=== PATIENT | female | born 1940 | race Hispanic/Latino ===

== ENCOUNTER 2018-07-02 12:59 | Inpatient (IN) | payer BC, MEDICARE ==
--- NOTE | 2018-07-02 14:21 | C.PDOC ---
History Of Present Illness 78 y/o female presents to the ED complaining of possible foreign body to pharynx. States that she was chewing dried apricot and now feels like its stuck in her throat. Patient complains it feels difficult to swallow. No other complai nts. She appears comfortable on arrival, speaking in complete sentences. Time Seen by Provider: 07/02/18 13:32 Chief Complaint (Nursing): ENT Problem History Per: Patient History/Exam Limitations: None Onset/Duration Of Symptoms: Hrs Current Symptoms Are (Timing): Still Present Past Medical History Reviewed: Historical Data, Nursing Documentation, Vital Signs Vital Signs: Last Vital Signs Temp 97.4 F L 07/02/18 13:10 Pulse 65 07/02/18 13:10 Resp 22 07/02/18 13:10 BP 142/80 07/02/18 13:10 Pulse Ox 96 07/02/18 13:10 - Medical History PMH: Arthritis, Rheumatoid Arthritis Surgical History: Coronary Stent (2 weeks ago) Family History: States: Unknown Family Hx - Social History Hx Alcohol Use: No Hx Substance Use: No - Immunization History Hx Tetanus Toxoid Vaccination: No Hx Influenza Vaccination: No Hx Pneumococcal Vaccination: No Review Of Systems Except As Marked, All Systems Reviewed And Found Negative. Constitutional: Negative for: Fever, Chills ENT: Positive for: Throat Pain, Other (Difficulty swallowing, Possible FB in throat). Negative for: Throat Swelling Respiratory: Negative for: Cough, Shortness of Breath Gastrointestinal: Negative for: Nausea, Vomiting, Abdominal Pain Skin: Negative for: Rash Neurological: Negative for: Weakness, Dizziness Physical Exam - Physical Exam Appears: Non-toxic, No Acute Distress, Other (Speaking in full sentences) Skin: Normal Color, Warm, Dry Head: Atraumatic, Normacephalic Eye(s): bilateral: Normal Inspection, PERRL, EOMI Oral Mucosa: Moist Throat: No Drooling, Other (Mild stridor, no visible foreign body) Neck: Normal ROM, Supple Chest: Symmetrical Cardiovascular: Rhythm Regular, No Murmur Respiratory: Normal Breath Sounds, No Accessory Muscle Use Gastrointestinal/Abdominal: Soft, No Tenderness, No Distention Extremity: Bilateral: Atraumatic, Normal ROM (x 4) Neurological/Psych: Oriented x3, Normal Speech ED Course And Treatment - Laboratory Results Result Diagrams: 07/02/18 14:18 07/02/18 14:18 ECG: Interpreted By Me, Viewed By Me ECG Rhythm: Sinus Rhythm Interpretation Of ECG: Nonspecific ST/T wave changes. No old EKG for comparison Rate From EC (bpm) O2 Sat by Pulse Oximetry: 96 (RA) Pulse Ox Interpretation: Normal - CT Scan/US CT Neck/Soft Tissue Other Rad Studies (CT/US): Read By Radiologist, Radiology Report Reviewed CT/US Interpretation: Accession No. : [id number]. Patient Name / ID : JAY RILEY / [id number]. Exam Date : 07/02/2018 14:47:59 ( Approved ). Study Comment : Sex / Age : F / 78Y. Creator : Wen Shine. Dictator : Ervin Shore MD. Care Team Assistant : Press Cutter : Ervin Shore MD. Approver2 : Report Date : 07/02/2018 15:06:35. My Comment : . Date of service: 07/02/2018. PROCEDURE: CT NECK WITHOUT CONTRAST. HISTORY: dysphagia r/o esophageal foreign body. COMPARISON: None available. TECHNIQUE: CT of the neck without intravenous contrast. Coronal and sagittal reformats generated. Radiation dose: Total exam DLP = 295.34 mGy-cm. This CT exam was performed using one or more of the following dose reduction techniques: Automated exposure control, adjustment of the mA and/or kV according to patient size, and/or use of iterative reconstruction technique. FINDINGS: NASOPHARYNX: Unremarkable. SUPRAHYOID NECK: Unremarkable oropharynx, oral cavity, parapharyngeal space and retropharyngeal space. INFRAHYOID NECK: There is fluid identified layering in the hypopharynx at the valleculae symmetrically due to 1.8 x 2.5 x 4.5 cm hyperdense retained presumed foreign body at the origin of the esophagus extending into the upper 3rd of the esophagus just above the level of the thoracic inlet. No pneumomediastinum or fluid collection is appreciated surrounding the esophagus with the upper mediastinum in the chest remarkable only for atherosclerotic thoracic aortic arch. Note is made of a permanent cardiac pacemaker generator the left pectoralis region with 2 leads extending to the left subclavian vein in identified exerting exit entering into the superior vena cava with the distal segment is not captured in this exam. Unremarkable larynx, and supraglottic space. Vocal cords intact. MASS: None. GLANDS: Parotid and submandibular glands unremarkable. Normal size thyroid gland, without nodule. LYMPH NODES: Normal. No lymphadenopathy. CERVICAL SPINE: No fracture or focal lesion. OTHER FINDINGS: Two small nodules identified at the right pulmonary apex with the largest seen faintly in image 68 series 2 measuring 4.96 mm. A smaller likely solid nodule measures 3.2 mm in image 63. IMPRESSION: 1. 4.5 cm retained foreign body is seen at the proximal esophagus immediately inferior to the pharyngo esophageal junction causing pooling of fluid at the hypopharynx as discussed above. No pneumomediastinum or periesophageal fluid collection appreciable. 2. Otherwise unremarkable neck CT without contrast. 3. Incidental biapical fibrosis with at least 2 nodule suspected at the right pulmonary apex under 5 mm greatest dimension for which follow-up CT can be performed in 6 months to demonstrate stability of these findings. Findings discussed with Dr. De Oliveira with written down and read back verification 07/02/2018 3:[address] Chest Other Rad Studies (CT/US): Read By Radiologist, Radiology Report Reviewed CT/US Interpretation: Accession No. : [id number]. Patient Name / ID : JAY RILEY / [id number]. Exam Date : 07/02/2018 14:51:25 ( Approved ). Study Comment : Sex / Age : F / 78Y. Creator : Wen Shine. Dictator : Ervin Shore MD. Care Team Assistant : Press Cutter : Ervin Shore MD. Approver2 : Report Date : 07/02/2018 15:06:29. My Comment : . Date of service: 07/02/2018. PROCEDURE: CT Chest without contrast. HISTORY: DYSPHAGIA R/O ESOPHAGEAL FOREIGN BODY. COMPARISON: None available. TECHNIQUE: Contiguous axial images were obtained through the chest without intravenous contrast enhancement. Sagittal and coronal reconstructions were performed. . Radiation dose: Total exam DLP = 143.5 mGy-cm. This CT exam was performed using one or more of the following dose reduction techniques: Automated exposure control, adjustment of the mA and/or kV according to patient size, and/or use of iterative reconstruction technique. FINDINGS: LUNGS: Dense atelectasis appreciate the right lower lobe base. Limited linear atelectasis or fibrosis seen at the bilateral bases. Central airways are clear. A few right pulmonary nodules are identified: A non solid 5 mm nodule is been previously identified and neck CT at the right apex laterally and corresponds to a nodule seen in image 21 series 4 currently. A 3.2 mm nodule is seen more cephalad to it also described in separate neck CT in image 18 currently. A 5 mm nodule seen in the right lower lobe in image 51 with a 5.9 mm nodule identified in the right middle lobe in the periphery in image 67. None of these nodules are calcified. At the left lower lobe costophrenic sulcus there is a flat shaped 5 mm nodule noncalcified in image 88. MEDIASTINUM: Non aneurysmal thoracic aorta identified.. Borderline cardiomegaly. Are leads from permanent cardiac pacemaker seen with generator the left pectoralis region and leads entering into the chest via left subclavian vein. Main pulmonary artery measures 3.2 cm was not definitive of pulmonary artery hypertension however clinical correlation is recommended. No significant lymphadenopathy appreciable. At the middle 3rd of the esophagus, there is an additional radiodensity seen within the lumen measuring 1.6 x 1.4 x 3.5 cm representing a 2nd retained foreign body reportedly, desiccated aspect apricot pieces. Again, no pneumomediastinum is identified or periesophageal fluid collection to potentially herald a esophageal perforation. Calcific atherosclerotic changes are seen related to the thoracic aorta. PLEURA: No pleural fluid. No pneumothorax. BONES: Multilevel insufficiency fracture identified at the mid thoracic spine of [id number] severity but of indeterminate age. T6 vertebral body is anteriorly wedged to moderate severity with T7 and T8 mildly anterior wedged. UPPER ABDOMEN: Bilateral renal cysts are identified incidentally. OTHER FINDINGS: None. IMPRESSION: 1. 3.5 cm retained radiodense foreign body appreciated in the mid esophagus apparently reflecting pieces of apricot fruit. This is the 2nd of 2 identified within the esophagus. Please see separate neck CT (07/02/2018 as well) without contrast which demonstrates larger obstructing retained foreign body at the origin of the esophagus. 2. Scattered pulmonary nodules are identified, all under 1 cm size which require six-month follow-up CT to demonstrate stability if not already proven benign. 3. Right lower lobe atelectasis favored over infiltrate. 4. 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 Age of these fractures is indeterminate. 5. Other lesser findings as discussed above. Findings discussed with Dr. De Oliveira with written down and read back verification 07/02/2018, 3:50 p.m.. Medical Decision Making Medical Decision Making: Impression: R/o foreign body Plan: --Labs --CXR --CT Chest --CT Neck/Soft tissue ENT on-call, Dr. Centeno, was paged. 14:15 Dr. Centeno is at bedside, evaluating patient. 15:36 CT shows esophageal foreign body. Paged Dr. Schultz, GI on-call, for consult. 16:05 Attempted 2nd page to Dr. Schultz. 16:13 Received call back from Dr. Schultz, agrees with plan to give Glucagon and Zofran. Recommends patient be admitted to hospitalist service. 16:[address] Yobany Garcia, patient accepted for admission. dr griggs later calls. states he will be taking pt to endoscopy. Disposition Counseled Patient/Family Regarding: Studies Performed, Diagnosis - Disposition Disposition: HOSPITALIZED Disposition Time: 16:20 Condition: STABLE - Clinical Impression Clinical Impression: Esophageal obstruction due to food impaction - Uzmaibe Statement The provider has reviewed the documentation as recorded by the Nisha Almanza Provider Attestation: All medical record entries made by the Nisha were at my direction and personally dictated by me. I have reviewed the chart and agree that the record accurately reflects my personal performance of the history, physical exam, me dical decision making, and the department course for this patient. I have also personally directed, reviewed, and agree with the discharge instructions and disposition. Decision To Admit - Pt Status Changed To: Hospital Disposition Of: Inpatient - Admit Certification Admit to Inpatient:: After my assessment, the patient will require hospitalization for at least two midnights. This is because of the severity of symptoms shown, intensity of services needed, and/or the medical risk in this pa tient being treated as an outpatient. - InPatient: Physician Admission Certification: I certify that this patient requires 2 or more midnights of care for the following reason:: needs gi - . Bed Request Type: Regular Admitting Physician: Yobany Garcia Patient Diagnosis: Esophageal obstruction due to food impaction
[2018-07-02 14:23] LABS: BASO % 0.5 % (0.0-2.0); EOS # 0.2 K/uL (0.0-0.7); EOS % 2.4 % (0.0-4.0); HEMOGLOBIN 10.3 g/dL (11.0-16.0); LYMPH # 1.2 K/uL (1.0-4.3); LYMPH % 18.2 % (20.0-40.0); MEAN CELL VOLUME 96.8 fL (81.0-99.0); MEAN CORPUSCULAR HEMOGLOBIN 31.6 pg (27.0-31.0); MEAN CORPUSCULAR HGB CONC 32.6 g/dL (33.0-37.0); MEAN PLATELET VOLUME 7.3 fL (7.2-11.7); MONO # 0.5 K/uL (0.0-0.8); MONO % 7.5 % (0.0-10.0); NEUT # 4.6 K/uL (1.8-7.0); NEUT % 71.4 % (50.0-75.0); NRBC % 0.1 % (0.0-2.0); RBC 3.28 Mil/uL (3.80-5.20); RED CELL DISTRIBUTION WIDTH 15.3 % (11.5-14.5); WHITE BLOOD COUNT 6.4 K/uL (4.8-10.8)
[2018-07-02 14:32] LABS: INR 1.1; PROTHROMBIN TIME 11.7 SECONDS (9.7-12.2)
[2018-07-02 14:35] LABS: ALB/GLOB RATIO 1.4 (1.0-2.1); ALBUMIN 4.1 g/dL (3.5-5.0); ALT/SGPT 24 U/L (9-52); AST/SGOT 27 U/L (14-36); BLOOD UREA NITROGEN 26 mg/dL (7-17); CALCIUM 9.6 mg/dl (8.6-10.4); GFR NON-AFRICAN AMERICAN > 60
--- NOTE | 2018-07-02 15:43 | CT ---
Date of service: 07/02/2018 PROCEDURE: CT NECK WITHOUT CONTRAST HISTORY: dysphagia r/o esophageal foreign body COMPARISON: None available. TECHNIQUE: CT of the neck without intravenous contrast. Coronal and sagittal reformats generated. Radiation dose: Total exam DLP = 295.34 mGy-cm. This CT exam was performed using one or more of the following dose reduction techniques: Automated exposure control, adjustment of the mA and/or kV according to patient size, and/or use of iterative reconstruction technique. FINDINGS: NASOPHARYNX: Unremarkable. SUPRAHYOID NECK: Unremarkable oropharynx, oral cavity, parapharyngeal space and retropharyngeal space. INFRAHYOID NECK: There is fluid identified layering in the hypopharynx at the valleculae symmetrically due to 1.8 x 2.5 x 4.5 cm hyperdense retained presumed foreign body at the origin of the esophagus extending into the upper 3rd of the esophagus just above the level of the thoracic inlet. No pneumomediastinum or fluid collection is appreciated surrounding the esophagus with the upper mediastinum in the chest remarkable only for atherosclerotic thoracic aortic arch. Note is made of a permanent cardiac pacemaker generator the left pectoralis region with 2 leads extending to the left subclavian vein in identified exerting exit entering into the superior vena cava with the distal segment is not captured in this exam. Unremarkable larynx, and supraglottic space. Vocal cords intact. MASS: None. GLANDS: Parotid and submandibular glands unremarkable. Normal size thyroid gland, without nodule. LYMPH NODES: Normal. No lymphadenopathy. CERVICAL SPINE: No fracture or focal lesion. OTHER FINDINGS: Two small nodules identified at the right pulmonary apex with the largest seen faintly in image 68 series 2 measuring 4.96 mm. A smaller likely solid nodule measures 3.2 mm in image 63. IMPRESSION: 1. 4.5 cm retained foreign body is seen at the proximal esophagus immediately inferior to the pharyngo esophageal junction causing pooling of fluid at the hypopharynx as discussed above. No pneumomediastinum or periesophageal fluid collection appreciable. 2. Otherwise unremarkable neck CT without contrast. 3. Incidental biapical fibrosis with at least 2 nodule suspected at the right pulmonary apex under 5 mm greatest dimension for which follow-up CT can be performed in 6 months to demonstrate stability of these findings. Findings discussed with Dr. De Oliveira with written down and read back verification 07/02/2018 3:35 p.m..
--- NOTE | 2018-07-02 16:00 | CT ---
Date of service: 07/02/2018 PROCEDURE: CT Chest without contrast HISTORY: DYSPHAGIA R/O ESOPHAGEAL FOREIGN BODY COMPARISON: None available. TECHNIQUE: Contiguous axial images were obtained through the chest without intravenous contrast enhancement. Sagittal and coronal reconstructions were performed. Radiation dose: Total exam DLP = 143.5 mGy-cm. This CT exam was performed using one or more of the following dose reduction techniques: Automated exposure control, adjustment of the mA and/or kV according to patient size, and/or use of iterative reconstruction technique. FINDINGS: LUNGS: Dense atelectasis appreciate the right lower lobe base. Limited linear atelectasis or fibrosis seen at the bilateral bases. Central airways are clear. A few right pulmonary nodules are identified: A non solid 5 mm nodule is been previously identified and neck CT at the right apex laterally and corresponds to a nodule seen in image 21 series 4 currently. A 3.2 mm nodule is seen more cephalad to it also described in separate neck CT in image 18 currently. A 5 mm nodule seen in the right lower lobe in image 51 with a 5.9 mm nodule identified in the right middle lobe in the periphery in image 67. None of these nodules are calcified. At the left lower lobe costophrenic sulcus there is a flat shaped 5 mm nodule noncalcified in image 88. MEDIASTINUM: Non aneurysmal thoracic aorta identified.. Borderline cardiomegaly. Are leads from permanent cardiac pacemaker seen with generator the left pectoralis region and leads entering into the chest via left subclavian vein. Main pulmonary artery measures 3.2 cm was not definitive of pulmonary artery hypertension however clinical correlation is recommended. No significant lymphadenopathy appreciable. At the middle 3rd of the esophagus, there is an additional radiodensity seen within the lumen measuring 1.6 x 1.4 x 3.5 cm representing a 2nd retained foreign body reportedly, desiccated aspect apricot pieces. Again, no pneumomediastinum is identified or periesophageal fluid collection to potentially herald a esophageal perforation. Calcific atherosclerotic changes are seen related to the thoracic aorta. PLEURA: No pleural fluid. No pneumothorax. BONES: Multilevel insufficiency fracture identified at the mid thoracic spine of [id number] severity but of indeterminate age. T6 vertebral body is anteriorly wedged to moderate severity with T7 and T8 mildly anterior wedged. UPPER ABDOMEN: Bilateral renal cysts are identified incidentally. OTHER FINDINGS: None. IMPRESSION: 1. 3.5 cm retained radiodense foreign body appreciated in the mid esophagus apparently reflecting pieces of apricot fruit. This is the 2nd of 2 identified within the esophagus. Please see separate neck CT (07/02/2018 as well) without contrast which demonstrates larger obstructing retained foreign body at the origin of the esophagus. 2. Scattered pulmonary nodules are identified, all under 1 cm size which require six-month follow-up CT to demonstrate stability if not already proven benign. 3. Right lower lobe atelectasis favored over infiltrate. 4. Kyphotic thoracic spinal deformity due to multilevel [id number] compression fractures likely insufficiency related. Age of these fractures is indeterminate. 5. Other lesser findings as discussed above. Findings discussed with Dr. De Oliveira with written down and read back verification 07/02/2018, 3:50 p.m..
[2018-07-02] MEDS ORDERED: Glucagon Recombinant 1 mg Inj IV STA (16:11)
--- NOTE | 2018-07-02 16:24 | RAD ---
HISTORY: SOB COMPARISON: Noncontrast chest CT performed 07/02/18 TECHNIQUE: Chest, one view. FINDINGS: LUNGS: No focal consolidation. Please note that chest x-ray has limited sensitivity for the detection of pulmonary masses. PLEURA: No significant pleural effusion identified. No definite pneumothorax . CARDIOVASCULAR: Cardiomegaly. Ectatic aorta. Dense atherosclerotic calcifications. Dual lead left-sided pacemaker. OSSEOUS STRUCTURES: Osseous demineralization. Degenerative changes and deformity of the right humeral head. High-riding left humeral head may be seen in setting of chronic rotator cuff injury. VISUALIZED UPPER ABDOMEN: Unremarkable. OTHER FINDINGS: None. IMPRESSION: Cardiomegaly. Ectatic aorta. Dense atherosclerotic calcifications. Dual lead left-sided pacemaker. No focal consolidation.
[2018-07-02] MEDS ORDERED: Glucagon Recombinant 1 mg Inj ONE (16:28)
--- NOTE | 2018-07-02 16:44 | CP.PCM.HP ---
History of Present Illness - History of Present Illness History of Present Illness: PGY-1 Vicky Myers D.O. H&P for Dr. Yobany Garcia's service: Patient is an 78 year old female with history of HTN, HLD, CAD, RA, GERD, hypothyroidism, and glaucoma who presented to the ED with the feeling like something is caught in her throat. She was eating dried apricots 4 hours ago during her lunch when her upper and lower dentures became dislodged and she accidentally swallowed the apricots whole. She reports that she tried to drink water since the incident but is unable to swallow, even her secretions. She also reports a cough due to the discomfort in her throat and is producing a lot of clear saliva. She is able to speak and breathe without respiratory distress but does complain of pain with deep breaths. Patient denies dizziness, chest pain, palpitations, SOB, stomach pain, dysuria. PMH and medications were obtained from [facility] since patient and were unable to provide all spec [facility] information. PMH: CAD- stent 2 wks ago, HTN, HLD, rheumatoid arthritis, GERD, glaucoma, hypothyroidism PSH: b/l total hip replacements, L hand surgery for arthritis Meds: lisinopril 2.5 mg PO qd, atorvastatin 10 mg PO qd, methotrexate 2.5 mg PO qd, clopidogrel 75 mg PO qd, diclofenac sodium 1% gel q12h prn, esomeprazole 20 mg PO qd, levothyroxine 25 mg PO qd, folic acid 1 mg PO qd, metoprolol tartrate 25 mg PO bid, ezetimibe 10 mg PO qd, rhopressa 0.02% 1 drop qd, combigan eye drops 1 drop bid, travatan z 0.004% 1 eye drop qd All: levofloxacin- anaphylaxis FH: father, 3 brothers- heart disease SH: lives with , uses walker/cane to ambulate, quit smoking 50 years ago, denies alcohol or illicit drug use PMD: Stephanie Cardio: [place] GI: [place] Present on Admission - Present on Admission Any Indicators Present on Admission: No History of DVT/PE: No History of Uncontrolled Diabetes: No Urinary Catheter: No Decubitus Ulcer Present: No History Surgical Site Infection Following: None Review of Systems - Constitutional Constitutional: absent: Chills, Fever - EENT Eyes: absent: Change in Vision Ears: absent: Decreased Hearing Nose/Mouth/Throat: As Per HPI, Nasal Congestion, Dysphagia, Odynophagia, Neck Mass (L-side, present many years) - Cardiovascular Cardiovascular: Dyspnea. absent: Chest Pain, Palpitations, Pedal Edema - Respiratory Respiratory: As Per HPI, Cough, Dyspnea, Pain with Coughing. absent: Hemoptysis - Gastrointestinal Gastrointestinal: Nausea. absent: Abdominal Pain, Bloating, Constipation, Diarrhea, Vomiting - Genitourinary Genitourinary: absent: Dysuria, Hematuria - Menstruation Menstruation: Post Menopausal - Musculoskeletal Musculoskeletal: As Per HPI (chronic arthritis) - Integumentary Integumentary: absent: Lesions - Neurological Neurological: Weakness. absent: Focal Weakness, Headaches, Sensory Deficit, Syncope, Tremor - Endocrine Endocrine: absent: Palpitations - Hematologic/Lymphatic Hematologic: absent: Easy Bleeding, Easy Bruising, Lymphadenopathy Past Patient History - Infectious Disease Hx of Infectious Diseases: None - Tetanus Immunizations Tetanus Immunization: Unknown - Past Medical History & Family History Past Medical History?: Yes Past Family History: Reviewed and not pertinent - Past Social History Smoking Status: Former Smoker Chewing Tobacco Use: No Cigar Use: No Alcohol: None Drugs: Denies Home Situation {Lives}: With Family () - MUSCULOSKELETAL/RHEUMATOLOGICAL Hx Arthritis: Yes Hx Rheumatoid Arthritis: Yes - PSYCHIATRIC Hx Substance Use: No - SURGICAL HISTORY Hx Coronary Stent: Yes (2 weeks ago) Meds Allergies/Adverse Reactions: Allergies Allergy/AdvReac Type Severity Reaction Status Date / Time levofloxacin [From Levaquin] Allergy Verified 07/02/18 13:15 Physical Exam - Constitutional Appears: No Acute Distress - Head Exam Head Exam: ATRAUMATIC, NORMAL INSPECTION - Eye Exam Eye Exam: EOMI, PERRL Additional comments: b/l lacrimation - ENT Exam ENT Exam: Mucous Membranes Moist Additional comments: copious oral secretions - Neck Exam Additional comments: anterior cervical 1x1cm mode- nontender, firm, mobile - Respiratory Exam Respiratory Exam: Rales (L lower lung field), NORMAL BREATHING PATTERN. absent: Accessory Muscle Use, Respiratory Distress - Cardiovascular Exam Cardiovascular Exam: REGULAR RHYTHM, +S1, +S2 - GI/Abdominal Exam GI & Abdominal Exam: Soft. absent: Distended, Tenderness - Extremities Exam Extremities exam: Positive for: normal inspection, pedal pulses present. Neg ative for: pedal edema, tenderness - Back Exam Back exam: NORMAL INSPECTION - Neurological Exam Neurological exam: Alert, CN II-XII Intact, Oriented x3 - Psychiatric Exam Psychiatric exam: Normal Affect, Normal Mood - Skin Skin Exam: Dry, Normal Color, Warm Results - Vital Signs Recent Vital Signs: Last Vital Signs Temp 98.5 F 07/02/18 16:33 Pulse 70 07/02/18 16:33 Resp 18 07/02/18 16:33 BP 159/69 H 07/02/18 16:33 Pulse Ox 95 07/02/18 16:33 - Labs Result Diagrams: 07/02/18 14:18 07/02/18 14:18 Labs: Laboratory Results - last 24 hr 07/02/18 07/02/18 07/02/18 14:18 14:18 14:18 WBC 6.4 RBC 3.28 L Hgb 10.3 L Hct 31.7 L MCV 96.8 MCH 31.6 H MCHC 32.6 L RDW 15.3 H Plt Count 193 MPV 7.3 Neut % (Auto) 71.4 Lymph % (Auto) 18.2 L [place] % (Auto) 7.5 Eos % (Auto) 2.4 Baso % (Auto) 0.5 Neut # (Auto) 4.6 Lymph # (Auto) 1.2 [place] # (Auto) 0.5 Eos # (Auto) 0.2 Baso # (Auto) 0.0 PT 11.7 INR 1.1 APTT 34 Sodium 136 Potassium 4.3 Chloride 103 Carbon Dioxide 24 Anion Gap 13 BUN 26 H Creatinine 0.8 Est GFR ( Amer) > 60 Est GFR (Non-Af Amer) > 60 Random Glucose 85 Calcium 9.6 Total Bilirubin 0.6 AST 27 ALT 24 Alkaline Phosphatase 75 Total Protein 7.1 Albumin 4.1 Globulin 3.0 Albumin/Globulin Ratio 1.4 Blood Type Antibody Screen 07/02/18 14:18 WBC RBC Hgb Hct MCV MCH MCHC RDW Plt Count MPV Neut % (Auto) Lymph % (Auto) [place] % (Auto) Eos % (Auto) Baso % (Auto) Neut # (Auto) Lymph # (Auto) [place] # (Auto) Eos # (Auto) Baso # (Auto) PT INR APTT Sodium Potassium Chloride Carbon Dioxide Anion Gap BUN Creatinine Est GFR ( Amer) Est GFR (Non-Af Amer) Random Glucose Calcium Total Bilirubin AST ALT Alkaline Phosphatase Total Protein Albumin Globulin Albumin/Globulin Ratio Blood Type B POSITIVE Antibody Screen Negative Assessment & Plan - Assessment and Plan (Free Text) Assessment: Patient is an 78 year old female with history of HTN, HLD, CAD, RA, GERD, hypothyroidism, and glaucoma who presented after getting dried apricots stuck in her esophagus. Imaging shows 2 foreign bodies. Plan for GI to scope tonight. Plan: Foreign bodies in esophagus (food boluses) - CT neck: 4.5 cm retained foreign body is seen at the proximal esophagus immediately inferior to the pharyngo esophageal junction causing pooling of fluid at the hypopharynx as discussed above. No pneumomediastinum or periesophageal fluid collection appreciable. - CT chest: 3.5 cm retained radiodense foreign body appreciated in the mid esophagus apparently reflecting pieces of apricot fruit. This is the 2nd of 2 identified within the esophagus. Please see separate neck CT (07/02/2018 as well) without contrast which demonstrates larger obstructing retained foreign body at the origin of the esophagus. - Zofran 4 mg IV in ED - Glucagon in ED - NPO - D5NS @ 90 mL/hr - GI consulted ([place])- EGD tonight Coronary artery disease- s/p stents 2 weeks ago - Continue home meds when not NPO - ASA 81 mg PO daily - Plavix 75 mg PO daily Hypertension - Continue home meds when not NPO - Lisinopril 2.5 mg PO daily - Metoprolol tartrate 25 mg PO BID Hyperlipidemia - Continue home meds when not NPO - Atorvastatin 10 mg PO daily - Ezetimibe 10 mg PO daily Hypothyroidism - Continue home med when not NPO - Levothyroxine 25 mcg PO daily Glaucoma - Continue home meds - Rhopressa 0.02% 1 drop daily - Combigan eye drops 1 drop BID - Travatan z 0.004% 1 eye drop daily GERD - Protonix 40 mg PO daily Rheumatoid arthritis - Continue home meds when not NPO - Methotrexate 2.5 mg PO daily - Folic acid 1 mg PO daily - Diclofenac sodium 1% gel Q12H PRN - Tylenol 650 mg PO Q6H PRN Left anterior cervical lymphadenopathy - Recommend outpatient follow-up Pulmonary nodules - Hx of smoking- quit 50 yrs ago - CT neck: Incidental biapical fibrosis with at least 2 nodule suspected at the right pulmonary apex under 5 mm greatest dimension for which follow-up CT can be performed in 6 months to demonstrate stability of these findings. - CT chest: Scattered pulmonary nodules are identified, all under 1 cm size which require six-month follow-up CT to demonstrate stability if not already proven benign. Right lower lobe atelectasis favored over infiltrate. 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 Age of these fractures is indeterminate. Ppx: VTE: SCDs GI: Protonix 40 mg PO daily Code status: full code Case discussed with attending, Dr. Yobany Garcia.
[2018-07-02] MEDS: Dextrose 5%/0.9% NS 1,000 ML IV SCH (17:14)
[2018-07-02] MEDS ORDERED: Lidocaine Hydrochloride 5 ML INJ ONE (18:53)
[2018-07-02] MEDS ORDERED: Succinylcholine Chloride 20 mg/ml Syr (5 ml) IV ONE (18:53)
[2018-07-02] MEDS ORDERED: ePHEDrine 50 mg/ml Inj ONE (19:05)
--- NOTE | 2018-07-02 19:39 | CP.PCM.CON ---
History of Present Illness - History of Present Illness History of Present Illness: This is an 78 year old woman with difficulty swallowing. Patient ate dried apricots at lunch and accidentally swallowed the fruit without chewing. After that, she was unable to swallow liquids, even salivea. She is able to breathe and to speak, although she is coughing. Patient has not had any episodes of food impaction previously. She denies having heartburn, loss of appetite, loss of weight, nausea, vomiting, diarrhea, constipation or rectal bleeding. Review of Systems - EENT Ears: absent: Dizziness Nose/Mouth/Throat: Dysphagia, Sore Throat - Cardiovascular Cardiovascular: absent: Chest Pain, Palpitations - Respiratory Respiratory: absent: Dyspnea - Gastrointestinal Gastrointestinal: absent: Constipation, Diarrhea, Heartburn, Hematochezia, Nausea, Vomiting - Genitourinary Genitourinary: absent: Dysuria Past Patient History - Infectious Disease Hx of Infectious Diseases: None - Tetanus Immunizations Tetanus Immunization: Unknown - Past Medical History & Family History Past Medical History?: Yes Past Family History: Reviewed and not pertinent - Past Social History Smoking Status: Former Smoker Chewing Tobacco Use: No Cigar Use: No Alcohol: None Drugs: Denies Home Situation {Lives}: With Family () - MUSCULOSKELETAL/RHEUMATOLOGICAL Hx Arthritis: Yes Hx Rheumatoid Arthritis: Yes - PSYCHIATRIC Hx Substance Use: No - SURGICAL HISTORY Hx Coronary Stent: Yes (2 weeks ago) Meds Allergies/Adverse Reactions: Allergies Allergy/AdvReac Type Severity Reaction Status Date / Time levofloxacin [From Levaquin] Allergy Verified 07/02/18 13:15 - Medications Medications: Current Medications Dextrose/Sodium Chloride (Dextrose 5%/0.9% Ns 1000 Ml) 1,000 mls @ 90 mls/hr IV .Q11H7M [facility] Last Admin: 07/02/18 17:14 Dose: 90 mls/hr Physical Exam - Constitutional Appears: No Acute Distress - Head Exam Head Exam: ATRAUMATIC, NORMOCEPHALIC - Eye Exam Eye Exam: EOMI, PERRL - Neck Exam Neck exam: Negative for: Lymphadenopathy, Thyromegaly - Respiratory Exam Respiratory Exam: NORMAL BREATHING PATTERN. absent: Rales, Rhonchi, Wheezes - Cardiovascular Exam Cardiovascular Exam: REGULAR RHYTHM, +S1, +S2. absent: Gallop, Rubs, Systolic Murmur - GI/Abdominal Exam GI & Abdominal Exam: Normal Bowel Sounds, Soft. absent: Mass, Organomegaly, Tenderness - Rectal Exam Rectal Exam: Deferred - Extremities Exam Extremities exam: Negative for: calf tenderness, pedal edema Results - Vital Signs Recent Vital Signs: Last Vital Signs Temp 98.5 F 07/02/18 16:33 Pulse 79 07/02/18 18:01 Resp 18 07/02/18 16:33 BP 120/40 L 07/02/18 18:01 Pulse Ox 96 07/02/18 18:38 - Labs Result Diagrams: 07/02/18 14:18 07/02/18 14:18 Labs: Laboratory Results - last 24 hr 07/02/18 07/02/18 07/02/18 14:18 14:18 14:18 WBC 6.4 RBC 3.28 L Hgb 10.3 L Hct 31.7 L MCV 96.8 MCH 31.6 H MCHC 32.6 L RDW 15.3 H Plt Count 193 MPV 7.3 Neut % (Auto) 71.4 Lymph % (Auto) 18.2 L [place] % (Auto) 7.5 Eos % (Auto) 2.4 Baso % (Auto) 0.5 Neut # (Auto) 4.6 Lymph # (Auto) 1.2 [place] # (Auto) 0.5 Eos # (Auto) 0.2 Baso # (Auto) 0.0 PT 11.7 INR 1.1 APTT 34 Sodium 136 Potassium 4.3 Chloride 103 Carbon Dioxide 24 Anion Gap 13 BUN 26 H Creatinine 0.8 Est GFR ( Amer) > 60 Est GFR (Non-Af Amer) > 60 Random Glucose 85 Calcium 9.6 Total Bilirubin 0.6 AST 27 ALT 24 Alkaline Phosphatase 75 Total Protein 7.1 Albumin 4.1 Globulin 3.0 Albumin/Globulin Ratio 1.4 Blood Type Antibody Screen 07/02/18 14:18 WBC RBC Hgb Hct MCV MCH MCHC RDW Plt Count MPV Neut % (Auto) Lymph % (Auto) [place] % (Auto) Eos % (Auto) Baso % (Auto) Neut # (Auto) Lymph # (Auto) [place] # (Auto) Eos # (Auto) Baso # (Auto) PT INR APTT Sodium Potassium Chloride Carbon Dioxide Anion Gap BUN Creatinine Est GFR ( Amer) Est GFR (Non-Af Amer) Random Glucose Calcium Total Bilirubin AST ALT Alkaline Phosphatase Total Protein Albumin Globulin Albumin/Globulin Ratio Blood Type B POSITIVE Antibody Screen Negative Assessment & Plan (1) Esophageal obstruction due to food impaction Assessment and Plan: Patient has esophageal food impaction, dried apricots by history, with two separate pieces identified by imaging. EGD will be scheduled for this evening. Status: Acute
[2018-07-02] MEDS ORDERED: HYDROmorphone 0.5 mg/0.5 ml ISec IVP STA (21:31)
--- NOTE | 2018-07-03 01:14 | OP ---
PROCEDURE DATE: 07/02/2018 PREOPERATIVE DIAGNOSIS: Dysphagia. POSTOPERATIVE DIAGNOSIS: Dysphagia. PROCEDURE: Flexible laryngoscopy. SIGNIFICANT FINDINGS: Secretions pooled in the piriform sinuses. DESCRIPTION OF PROCEDURE: The patient was placed in seated position. Flexible laryngoscope was inserted into the nasal cavity; passed through nasopharynx, oropharynx, hypopharynx. Pharyngeal luevano, base of tongue, vallecula, epiglottis, AE folds, false cords, true cords, arytenoids were brought into view. No masses or lesions were noted. Pooling secretion was noted in both piriform sinuses. The scope was removed. The patient tolerated the procedure well. The patient may have food impaction in the esophagus, recommend consulting GI. Noble Centeno MD MTDD
[2018-07-03] MEDS: Dextrose 5%/0.9% NS 1,000 ML IV SCH ×3 (04:25→15:20)
[2018-07-03] MEDS: Levothyroxine 25 MCG TAB PO SCH (06:51)
--- NOTE | 2018-07-03 09:20 | CT ---
Date of service: 07/02/2018 PROCEDURE: CT NECK WITHOUT CONTRAST HISTORY: R/O pneumomediastinum post foreign body removal COMPARISON: Breast made with prior CT scan neck 07/02/2018 1447 hr TECHNIQUE: CT of the neck without intravenous contrast. Coronal and sagittal reformats generated. Radiation dose: Total exam DLP = 262.35 mGy-cm. This CT exam was performed using one or more of the following dose reduction techniques: Automated exposure control, adjustment of the mA and/or kV according to patient size, and/or use of iterative reconstruction technique. FINDINGS: NASOPHARYNX: Unremarkable. SUPRAHYOID NECK: Unremarkable oropharynx, oral cavity, parapharyngeal space and retropharyngeal space. INFRAHYOID NECK: Unremarkable larynx, hypopharynx, and supraglottic space. Vocal cords intact. MASS: None. GLANDS: Parotid and submandibular glands unremarkable. Normal size thyroid gland, without nodule. LYMPH NODES: Normal. No lymphadenopathy. CERVICAL SPINE: Multilevel degenerative spondylosis of the cervical spine. Slight posterior subluxation C2 over C3 and minimal anterior subluxation of C6 over C7. OTHER FINDINGS: Changes of bilateral cataract surgery again noted Previously seen and described opaque foreign body which apparently lodged within the in the proximal esophagus no longer visible on this study and presumably has been removed... There appears to be some wall thickening of the proximal esophagus as well possibly representing edema-venous congestion the related to prolonged but since removed foreign body and recent instrumentation for foreign body removal. No evidence of obvious pneumomediastinum within the superior mediastinum. IMPRESSION: Interval removal for radiopaque foreign body presumably from the upper aerodigestive tract-proximal esophagus. The proximal esophagus exhibits thick-walled appearance possibly edema/venous congestion from prolonged foreign body instrumentation during foreign body removal
--- NOTE | 2018-07-03 11:02 | CP.PCM.PN ---
Subjective - Date & Time of Evaluation Date of Evaluation: 07/03/18 Time of Evaluation: 10:59 - Subjective Subjective: Last night, SaO2 decreased to 93% at 22:34. this morning, BP declined to 97/53 and temperature spiked to 101.6 degrees. Patient complains of occasional cough but no shortness of breath. She denies having chest pain, pain on swallowing, nausea, vomiting. She has not had a bowel movement so far this morning. Objective - Vital Signs/Intake and Output Vital Signs (last 24 hours): Temp Pulse Resp BP Pulse Ox 101.6 F H 86 20 97/53 L 97 07/03/18 08:18 07/03/18 07:00 07/03/18 07:00 07/03/18 07:00 07/03/18 07:00 Intake and Output: 07/03/18 07/03/18 06:59 18:59 Intake Total 350 Output Total 251 Balance 99 - Medications Medications: Current Medications Acetaminophen (Tylenol 325mg Tab) 650 mg PO Q6 PRN PRN Reason: Fever >100.4; Pain, Mild (1-3) Aspirin (Aspirin Chewable) 81 mg PO DAILY [facility] Last Admin: 07/03/18 09:13 Dose: 81 mg Clopidogrel Bisulfate (Plavix) 75 mg PO DAILY [facility] Last Admin: 07/03/18 09:13 Dose: 75 mg Famotidine (Pepcid) 20 mg PO DAILY [facility] Last Admin: 07/03/18 09:13 Dose: 20 mg Folic Acid (Folic Acid) 1 mg PO DAILY [facility] Last Admin: 07/03/18 09:12 Dose: 1 mg Heparin Sodium (Porcine) (Heparin) 5,000 units SC Q12 [facility] Last Admin: 07/03/18 09:13 Dose: 5,000 units Dextrose/Sodium Chloride (Dextrose 5%/0.9% Ns 1000 Ml) 1,000 mls @ 90 mls/hr IV .Q11H7M [facility] Last Admin: 07/03/18 10:47 Dose: 90 mls/hr Ceftriaxone Sodium (Rocephin Iv 1 Gm Duplex) 50 mls @ 100 mls/hr IVPB DAILY [facility]; Protocol Metronidazole (Flagyl) 500 mg in 100 mls @ 100 mls/hr IVPB Q8H [facility]; Protocol Levothyroxine Sodium (Synthroid) 25 mcg PO DAILY@0630 [facility] Last Admin: 07/03/18 06:51 Dose: Not Given Lisinopril (Zestril) 2.5 mg PO DAILY [facility] Methotrexate (Methotrexate) 2.5 mg PO DAILY [facility] Metoprolol Tartrate (Lopressor) 25 mg PO BID [facility] Last Admin: 07/03/18 09:18 Dose: Not Given Rosuvastatin Calcium (Crestor) 5 mg PO HS [facility] Last Admin: 07/02/18 22:56 Dose: Not Given - Labs Labs: 07/02/18 14:18 07/02/18 14:18 PT 11.7 SECONDS (9.7-12.2) 07/02/18 14:18 INR 1.1 07/02/18 14:18 APTT 34 SECONDS (21-34) 07/02/18 14:18 - Constitutional Appears: No Acute Distress - Head Exam Head Exam: ATRAUMATIC, NORMOCEPHALIC - Eye Exam Eye Exam: EOMI, PERRL - Neck Exam Neck Exam: absent: Lymphadenopathy, Thyromegaly - Respiratory Exam Respiratory Exam: NORMAL BREATHING PATTERN. absent: Rales, Rhonchi, Wheezes - Cardiovascular Exam Cardiovascular Exam: REGULAR RHYTHM, +S1, +S2. absent: Gallop, Rubs, Murmur - GI/Abdominal Exam GI & Abdominal Exam: Soft, Normal Bowel Sounds. absent: Tenderness, Mass, Organomegaly - Rectal Exam Rectal Exam: Deferred - Extremities Exam Extremities Exam: absent: Calf Tenderness, Pedal Edema Assessment and Plan (1) Esophageal obstruction due to food impaction Assessment & Plan: Patient is able to swallow liquids and soft solids without pain. She had fever and relative hypotension this morning. CT scan post procedure showed no evidence of pneumomediastinum, but bilateral lower lobe infiltrates were noted which were not present on the initial scan. Will order cultures and start empiric therapy for aspiration pneumonia with ceftriaxone and metronidazole. Status: Acute
--- NOTE | 2018-07-03 11:41 | CP.PCM.PN ---
Subjective - Date & Time of Evaluation Date of Evaluation: 07/03/18 Time of Evaluation: 09:41 - Subjective Subjective: PGY-1 Vicky Myers D.O. Medicine progress note for Dr. Yobany Garcia's service: Patient was seen and examined this morning. Apricots (food boluses) were able to be dislodged via EGD. The patient reports improvement in her dysphagia and odynophagia and says that she is able to tolerate pureed foods. She reports some residual esophageal pain but says that it is improving. Patient complains of productive cough which persisted from yesterday and is producing a clear mucus. Patient also had a fever this morning. She has not had a bowel movement this morning. She denies chest pain, palpitations, SOB, headache, vision changes, di arrhea/constipation, dysuria, or urinary frequency. Objective - Vital Signs/Intake and Output Vital Signs (last 24 hours): Temp Pulse Resp BP Pulse Ox 101.6 F H 86 20 97/53 L 97 07/03/18 08:18 07/03/18 07:00 07/03/18 07:00 07/03/18 07:00 07/03/18 07:00 Intake and Output: 07/03/18 07/03/18 06:59 18:59 Intake Total 350 Output Total 251 Balance 99 - Medications Medications: Current Medications Acetaminophen (Tylenol 325mg Tab) 650 mg PO Q6 PRN PRN Reason: Fever >100.4; Pain, Mild (1-3) Aspirin (Aspirin Chewable) 81 mg PO DAILY [facility] Last Admin: 07/03/18 09:13 Dose: 81 mg Clopidogrel Bisulfate (Plavix) 75 mg PO DAILY [facility] Last Admin: 07/03/18 09:13 Dose: 75 mg Famotidine (Pepcid) 20 mg PO DAILY [facility] Last Admin: 07/03/18 09:13 Dose: 20 mg Folic Acid (Folic Acid) 1 mg PO DAILY [facility] Last Admin: 07/03/18 09:12 Dose: 1 mg Heparin Sodium (Porcine) (Heparin) 5,000 units SC Q12 [facility] Last Admin: 07/03/18 09:13 Dose: 5,000 units Dextrose/Sodium Chloride (Dextrose 5%/0.9% Ns 1000 Ml) 1,000 mls @ 90 mls/hr IV .Q11H7M [facility] Last Admin: 07/03/18 10:47 Dose: 90 mls/hr Ceftriaxone Sodium (Rocephin Iv 1 Gm Duplex) 50 mls @ 100 mls/hr IVPB DAILY [facility]; Protocol Metronidazole (Flagyl) 500 mg in 100 mls @ 100 mls/hr IVPB Q8H [facility]; Protocol Levothyroxine Sodium (Synthroid) 25 mcg PO DAILY@0630 [facility] Last Admin: 07/03/18 06:51 Dose: Not Given Lisinopril (Zestril) 2.5 mg PO DAILY [facility] Methotrexate (Methotrexate) 2.5 mg PO DAILY [facility] Metoprolol Tartrate (Lopressor) 25 mg PO BID [facility] Last Admin: 07/03/18 09:18 Dose: Not Given Rosuvastatin Calcium (Crestor) 5 mg PO HS [facility] Last Admin: 07/02/18 22:56 Dose: Not Given - Labs Labs: 07/02/18 14:18 07/02/18 14:18 PT 11.7 SECONDS (9.7-12.2) 07/02/18 14:18 INR 1.1 07/02/18 14:18 APTT 34 SECONDS (21-34) 07/02/18 14:18 - Constitutional Appears: Non-toxic, No Acute Distress - Head Exam Head Exam: ATRAUMATIC, NORMAL INSPECTION - Eye Exam Eye Exam: EOMI, Normal appearance - ENT Exam ENT Exam: Mucous Membranes Moist - Neck Exam Neck Exam: Normal Inspection Additional comments: anterior cervical 1x1cm mode- nontender, firm, mobile - Respiratory Exam Respiratory Exam: Rales, NORMAL BREATHING PATTERN. absent: Respiratory Distress - Cardiovascular Exam Cardiovascular Exam: RRR, +S1, +S2 - GI/Abdominal Exam GI & Abdominal Exam: Soft. absent: Distended, Tenderness - Extremities Exam Extremities Exam: Normal Inspection. absent: Pedal Edema - Back Exam Back Exam: NORMAL INSPECTION - Neurological Exam Neurological Exam: Alert, Awake, Oriented x3 - Psychiatric Exam Psychiatric exam: Normal Affect, Normal Mood - Skin Skin Exam: Dry, Normal Color, Warm Assessment and Plan - Assessment and Plan (Free Text) Assessment: Patient is an 78 year old female with history of HTN, HLD, CAD, RA, GERD, hypothyroidism, and glaucoma who presented after getting dried apricots stuck in her esophagus. Imaging shows 2 foreign bodies. GI removed with EGD last night. This morning, patient found to have focal consolidations on CXR as well as fever and leukocytosis. Plan: Foreign bodies in esophagus (food boluses), resolved - CT neck: 4.5 cm retained foreign body is seen at the proximal esophagus immediately inferior to the pharyngo esophageal junction causing pooling of fluid at the hypopharynx as discussed above. No pneumomediastinum or periesophageal fluid collection appreciable. - CT chest: 3.5 cm retained radiodense foreign body appreciated in the mid esophagus apparently reflecting pieces of apricot fruit. This is the 2nd of 2 identified within the esophagus. Please see separate neck CT (07/02/2018 as well) without contrast which demonstrates larger obstructing retained foreign body at the origin of the esophagus. - EGD on 07/02 - Repeat CTs show resolution - Pureed diet - D5NS @ 50 mL/hr - Flagyl 500 mg IV Q8H- started 07/02 - GI consulted ([place]) Pneumonia- suspect aspiration - CXR: focal consolidations in R mid-lower lobes - Fever 101.6 - WBC 13 - Aspiration precautions - Rocephin 1 g IV daily- started 07/03 - ID consulted ([place]) Anemia- suspect dilutional - 10.3-->7.7 - Decrease IVF - f/u CBC Coronary artery disease- s/p stents 2 weeks ago - Continue home meds when not NPO - ASA 81 mg PO daily - Plavix 75 mg PO daily Hypertension - Continue home meds when not NPO - Lisinopril 2.5 mg PO daily - Metoprolol tartrate 25 mg PO BID Hyperlipidemia - Continue home meds when not NPO - Atorvastatin 10 mg PO daily - Ezetimibe 10 mg PO daily Hypothyroidism - Continue home med when not NPO - Levothyroxine 25 mcg PO daily Glaucoma - Continue home meds - Rhopressa 0.02% 1 drop daily - Combigan eye drops 1 drop BID - Travatan z 0.004% 1 eye drop daily GERD - Protonix 40 mg PO daily Rheumatoid arthritis - Continue home meds when not NPO - Methotrexate 10 mg PO Q7D (Thu) - Folic acid 1 mg PO daily - Diclofenac sodium 1% gel Q12H PRN - Tylenol 650 mg PO Q6H PRN Left anterior cervical lymphadenopathy - Recommend outpatient follow-up Pulmonary nodules - Hx of smoking- quit 50 yrs ago - CT neck: Incidental biapical fibrosis with at least 2 nodule suspected at the right pulmonary apex under 5 mm greatest dimension for which follow-up CT can be performed in 6 months to demonstrate stability of these findings. - CT chest: Scattered pulmonary nodules are identified, all under 1 cm size which require six-month follow-up CT to demonstrate stability if not already proven benign. Right lower lobe atelectasis favored over infiltrate. - Recommend outpatient follow-up Compression fractures, chronic - CT chest: Kyphotic thoracic spinal deformity due to multilevel [id number] compression fractures likely insufficiency related. Age of these fractures is indeterminate. Ppx: VTE: SCDs GI: Protonix 40 mg PO daily Code status: full code Case discussed with attending, Dr. Yobany Garcia.
--- NOTE | 2018-07-03 12:32 | RAD ---
Chest x-ray single frontal view HISTORY: Fever. Infiltrate. Comparison: 07/02/2018 Findings: Focal consolidative opacification in the right mid to lower lung zone as well as the left lung base. Enlarged ectatic aorta with atherosclerotic calcification at the aortic knob. Cardiomegaly. Left-sided pacemaker. Degenerative changes in the spine and shoulders. Multiple left-sided rib deformities. Prominent costochondral calcifications. Impression: Focal consolidative opacification in the right mid to lower lung zone as well as the left lung base. Enlarged ectatic aorta with atherosclerotic calcification at the aortic knob. Cardiomegaly. Left-sided pacemaker. Degenerative changes in the spine and shoulders. Multiple left-sided rib deformities. Prominent costochondral calcifications.
[2018-07-03 14:10] LABS: BASO % 0.2 % (0.0-2.0); EOS # 0.1 K/uL (0.0-0.7); EOS % 0.6 % (0.0-4.0); LYMPH # 0.8 K/uL (1.0-4.3); LYMPH % 6.1 % (20.0-40.0); MEAN CELL VOLUME 97.5 fL (81.0-99.0); MEAN CORPUSCULAR HEMOGLOBIN 31.5 pg (27.0-31.0); MEAN CORPUSCULAR HGB CONC 32.2 g/dL (33.0-37.0); MEAN PLATELET VOLUME 7.6 fL (7.2-11.7); MONO # 0.6 K/uL (0.0-0.8); MONO % 4.8 % (0.0-10.0); NEUT # 11.5 K/uL (1.8-7.0); NEUT % 88.3 % (50.0-75.0); RBC 2.45 Mil/uL (3.80-5.20)
[2018-07-03 14:20] LABS: HEMOGLOBIN 7.7 g/dL (11.0-16.0); PLATELET COUNT 113 K/uL (130-400)
[2018-07-03 14:25] LABS: ALB/GLOB RATIO 1.3 (1.0-2.1); ALBUMIN 2.7 g/dL (3.5-5.0); ALT/SGPT 18 U/L (9-52); AST/SGOT 15 U/L (14-36); BLOOD UREA NITROGEN 16 mg/dL (7-17); CALCIUM 7.4 mg/dl (8.6-10.4); GFR NON-AFRICAN AMERICAN > 60
[2018-07-03 14:37] LABS: ANISOCYTOSIS SLIGHT; BANDS 1 % (0-2); EOSINOPHIL 2 % (0-4); LYMPHOCYTE 8 % (20-40); MONOCYTE 2 % (0-10); NEUTROPHIL 87 % (50-75); OVALOCYTES SLIGHT; PLATELET ESTIMATE SLIGHTLY DECREASED (NORMAL); TOTAL CELLS COUNTED 100
[2018-07-03] MEDS: cefTRIAXone IV 1 gm in Dextros 50 ML IVPB SCH (14:48)
[2018-07-03] MEDS ORDERED: Potassium Chloride 20 mEq/15 ml LIQ UD PO ONE (14:51)
[2018-07-03] MEDS: metroNIDAZOLE IV 500 mg/100 ml 500 MG/100 ML BAG IVPB SCH ×2 (15:22→20:17)
[2018-07-03 15:25] LABS: BASO % 0.2 % (0.0-2.0); EOS # 0.1 K/uL (0.0-0.7); EOS % 0.6 % (0.0-4.0); LYMPH # 0.9 K/uL (1.0-4.3); LYMPH % 7.1 % (20.0-40.0); MEAN CELL VOLUME 97.5 fL (81.0-99.0); MEAN CORPUSCULAR HEMOGLOBIN 31.7 pg (27.0-31.0); MEAN CORPUSCULAR HGB CONC 32.5 g/dL (33.0-37.0); MEAN PLATELET VOLUME 7.1 fL (7.2-11.7); MONO # 0.7 K/uL (0.0-0.8); MONO % 5.3 % (0.0-10.0); NEUT # 10.8 K/uL (1.8-7.0); NEUT % 86.8 % (50.0-75.0); RBC 2.53 Mil/uL (3.80-5.20); WHITE BLOOD COUNT 12.5 K/uL (4.8-10.8)
[2018-07-03] MEDS: Magnesium Sulfate 1 gm in D5W 1 GM/100 ML BAG IVPB SCH ×2 (16:26→17:22)
[2018-07-03] MEDS: Lactobacillus Acidophilus 500 MU Cap PO SCH (17:21)
--- NOTE | 2018-07-03 18:09 | CT ---
Date of service: 07/02/2018 PROCEDURE: CT Chest without contrast HISTORY: Rule out foreign body COMPARISON: Comparison made with CT scan chest 125 2019 TECHNIQUE: Contiguous axial images were obtained through the chest without intravenous contrast enhancement. Sagittal and coronal reconstructions were performed. Radiation dose: Total exam DLP = 185.45 mGy-cm. This CT exam was performed using one or more of the following dose reduction techniques: Automated exposure control, adjustment of the mA and/or kV according to patient size, and/or use of iterative reconstruction technique. FINDINGS: LUNGS: Moderate right and mild left lower lobe patchy infiltrates new since prior exam. Please refer to prior CT scan of the chest report for details regarding scattered pulmonary nodules which have been described detail that report. Recommend repeat CT scan in 6 months.. MEDIASTINUM: Previously noted radiopaque elliptical shaped foreign body which was located in the distal 1/3 of the esophagus is no longer visualized. No evidence of pneumomediastinum. Redemonstrated is aortic atherosclerotic calcification. Cardiomegaly. PLEURA: Questionable tiny bilateral effusions no evidence of pneumothorax BONES: Minor chronic anterior compression deformities few mid thoracic segments unchanged questionable tiny bilateral effusions. UPPER ABDOMEN: Grossly unremarkable. OTHER FINDINGS: None. IMPRESSION: No evidence of foreign body seen in the esophagus. No evidence of pneumomediastinum. Patchy infiltrate changes throughout both lower lobes right greater than left new since prior exam.. Please refer to prior CT scan of the chest 07/02/2018 for additional details regarding multiple bilateral pulmonary nodules for which follow-up CT scan in 6 months recommended. Cardiomegaly. No other changes
--- NOTE | 2018-07-03 18:39 | CP.PCM.CON ---
History of Present Illness - History of Present Illness History of Present Illness: dictated Past Patient History - Infectious Disease Hx of Infectious Diseases: None - Tetanus Immunizations Tetanus Immunization: Unknown - Past Medical History & Family History Past Medical History?: Yes - Past Social History Smoking Status: Former Smoker - MUSCULOSKELETAL/RHEUMATOLOGICAL Hx Falls: Yes - PSYCHIATRIC Hx Substance Use: No - SURGICAL HISTORY Hx Coronary Stent: Yes (2 weeks ago) - ANESTHESIA Hx Anesthesia: Yes Hx Anesthesia Reactions: No Meds Allergies/Adverse Reactions: Allergies Allergy/AdvReac Type Severity Reaction Status Date / Time levofloxacin [[facility] Allergy Verified 07/02/18 13:15 - Medications Medications: Current Medications Acetaminophen (Tylenol 325mg Tab) 650 mg PO Q6 PRN PRN Reason: Fever >100.4; Pain, Mild (1-3) Aspirin (Aspirin Chewable) 81 mg PO DAILY [facility] Last Admin: 07/03/18 09:13 Dose: 81 mg Clopidogrel Bisulfate (Plavix) 75 mg PO DAILY [facility] Last Admin: 07/03/18 09:13 Dose: 75 mg Famotidine (Pepcid) 20 mg PO DAILY [facility] Last Admin: 07/03/18 09:13 Dose: 20 mg Folic Acid (Folic Acid) 1 mg PO DAILY [facility] Last Admin: 07/03/18 09:12 Dose: 1 mg Ceftriaxone Sodium (Rocephin Iv 1 Gm Duplex) 50 mls @ 100 mls/hr IVPB DAILY [facility]; Protocol Last Admin: 07/03/18 14:48 Dose: 100 mls/hr Metronidazole (Flagyl) 500 mg in 100 mls @ 100 mls/hr IVPB Q8H [facility]; Protocol Last Admin: 07/03/18 15:22 Dose: 100 mls/hr Dextrose/Sodium Chloride (Dextrose 5%/0.9% Ns 1000 Ml) 1,000 mls @ 50 mls/hr IV .Q20H [facility] Last Admin: 07/03/18 15:20 Dose: 50 mls/hr Lactobacillus Acidophilus (Bacid Acidophilus) 1 cap PO BID [facility] Last Admin: 07/03/18 17:21 Dose: 1 cap Levothyroxine Sodium (Synthroid) 25 mcg PO DAILY@0630 [facility] Last Admin: 07/03/18 06:51 Dose: Not Given Lisinopril (Zestril) 2.5 mg PO DAILY [facility] Last Admin: 07/03/18 11:00 Dose: Not Given Methotrexate (Methotrexate) 10 mg PO Q7D [facility] Metoprolol Tartrate (Lopressor) 25 mg PO BID [facility] Last Admin: 07/03/18 17:21 Dose: Not Given Rosuvastatin Calcium (Crestor) 5 mg PO HS [facility] Last Admin: 07/02/18 22:56 Dose: Not Given Results - Vital Signs Recent Vital Signs: Last Vital Signs Temp 98.4 F 07/03/18 15:00 Pulse 83 07/03/18 15:00 Resp 20 07/03/18 15:00 BP 98/60 L 07/03/18 17:21 Pulse Ox 95 07/03/18 15:00 - Labs Result Diagrams: 07/03/18 15:22 07/03/18 14:00 Labs: Laboratory Results - last 24 hr 07/03/18 07/03/18 07/03/18 12:50 14:00 14:00 WBC 13.0 H D RBC 2.45 L Hgb 7.7 L D Hct 23.9 L MCV 97.5 MCH 31.5 H MCHC 32.2 L RDW 15.0 H Plt Count 113 L D MPV 7.6 Neut % (Auto) 88.3 H Lymph % (Auto) 6.1 L Norton % (Auto) 4.8 Eos % (Auto) 0.6 Baso % (Auto) 0.2 Neut # (Auto) 11.5 H Lymph # (Auto) 0.8 L Norton # (Auto) 0.6 Eos # (Auto) 0.1 Baso # (Auto) 0.0 Neutrophils % (Manual) 87 H Band Neutrophils % 1 Lymphocytes % (Manual) 8 L Monocytes % (Manual) 2 Eosinophils % (Manual) 2 Platelet Estimate Slightly decreased L Anisocytosis (manual) Slight Ovalocytes Slight Sodium 137 Potassium 3.5 L Chloride 109 H Carbon Dioxide 20 L Anion Gap 12 BUN 16 Creatinine 0.8 Est GFR ( Amer) > 60 Est GFR (Non-Af Amer) > 60 Random Glucose 106 H D Calcium 7.4 L Phosphorus 2.7 Magnesium 1.3 L Total Bilirubin 0.5 AST 15 ALT 18 Alkaline Phosphatase 41 Total Protein 4.9 L Albumin 2.7 L D Globulin 2.1 L Albumin/Globulin Ratio 1.3 Influenza Typ A,B (EIA) Negative for flu a/b 07/03/18 15:22 WBC 12.5 H RBC 2.53 L Hgb 8.0 L Hct 24.7 L MCV 97.5 MCH 31.7 H MCHC 32.5 L RDW 15.0 H Plt Count 110 L MPV 7.1 L Neut % (Auto) 86.8 H Lymph % (Auto) 7.1 L Norton % (Auto) 5.3 Eos % (Auto) 0.6 Baso % (Auto) 0.2 Neut # (Auto) 10.8 H Lymph # (Auto) 0.9 L Norton # (Auto) 0.7 Eos # (Auto) 0.1 Baso # (Auto) 0.0 Neutrophils % (Manual) Band Neutrophils % Lymphocytes % (Manual) Monocytes % (Manual) Eosinophils % (Manual) Platelet Estimate Anisocytosis (manual) Ovalocytes Sodium Potassium Chloride Carbon Dioxide Anion Gap BUN Creatinine Est GFR ( Amer) Est GFR (Non-Af Amer) Random Glucose Calcium Phosphorus Magnesium Total Bilirubin AST ALT Alkaline Phosphatase Total Protein Albumin Globulin Albumin/Globulin Ratio Influenza Typ A,B (EIA)
[2018-07-03 22:26] LABS: BASO % 0.2 % (0.0-2.0); EOS # 0.1 K/uL (0.0-0.7); EOS % 1.1 % (0.0-4.0); HEMOGLOBIN 7.8 g/dL (11.0-16.0); LYMPH # 0.7 K/uL (1.0-4.3); LYMPH % 6.6 % (20.0-40.0); MEAN CELL VOLUME 97.6 fL (81.0-99.0); MEAN CORPUSCULAR HEMOGLOBIN 31.9 pg (27.0-31.0); MEAN CORPUSCULAR HGB CONC 32.7 g/dL (33.0-37.0); MEAN PLATELET VOLUME 7.2 fL (7.2-11.7); MONO # 0.5 K/uL (0.0-0.8); MONO % 5.1 % (0.0-10.0); NEUT # 8.9 K/uL (1.8-7.0); PLATELET COUNT 101 K/uL (130-400); RBC 2.46 Mil/uL (3.80-5.20); WHITE BLOOD COUNT 10.2 K/uL (4.8-10.8)
[2018-07-03 22:41] LABS: EOSINOPHIL 2 % (0-4); LYMPHOCYTE 7 % (20-40); MONOCYTE 6 % (0-10); NEUTROPHIL 85 % (50-75); TOTAL CELLS COUNTED 100
[2018-07-03 22:42] LABS: ANISOCYTOSIS SLIGHT; PLATELET ESTIMATE SLIGHTLY DECREASED (NORMAL)
[2018-07-03 22:43] LABS: HYPOCHROMIC SLIGHT
[2018-07-04] MEDS: metroNIDAZOLE IV 500 mg/100 ml 500 MG/100 ML BAG IVPB SCH ×3 (03:32→19:28)
--- NOTE | 2018-07-04 04:13 | CON ---
DATE: 07/03/2018 INFECTIOUS DISEASE CONSULT REQUESTED BY: Yobany Garcia DO HISTORY OF PRESENT ILLNESS: This patient is an 78-year-old female. She has history of hypertension, hyperlipidemia, coronary artery disease, rheumatoid arthritis, GERD, hypothyroidism, and glaucoma. She presented to the emergency room with something is stuck in her throat, and she was eating dried apricots around 12 o'clock yesterday and that was stuck during her lunch, and when her upper and lower dentures became dislodged and she accidentally swallowed the apricot which was full. She tried to drink water, and she tried to swallow, but she was unable to do so, and she was reporting of cough and discomfort and producing lot of saliva and was not able to breathe. She tells me 2 weeks ago, she had a stent placed, and Dr. Johnson and Dr. Parkinson are her cardiologists, and she has been on Plavix. Her tells me that in October she fell and then the whole thing started, looking for the cause, and she was post removal of this foreign body. I spoke to Dr. Magana who said that she had two pieces, and he did the endoscopy, and he said that the patient was febrile before, and CAT scan showed bilateral some infiltrates. Hence, he placed her on antibiotics. SHE GIVES ME HISTORY OF HAVING ALLERGY TO LEVAQUIN. She said her throat closed several years ago when she was given Levaquin. PAST MEDICAL HISTORY: Significant for coronary artery stent 2 weeks ago, hypertension, rheumatoid arthritis, hyperlipidemia, gastroesophageal reflux disease, and glaucoma. SURGICAL HISTORY: Bilateral total hip replacement, left hand arthritis. SOCIAL HISTORY: She lives with her . Her was also at the bedside when I saw her. She uses a walker or a cane to ambulate, and she quit smoking 50 years ago. Denies any alcohol or drug abuse. MEDICATIONS: She is on lisinopril,atorvastatin, methotrexate, Plavix, diclofenac, and she also has a history of glaucoma he said, and she is on some eye drops, levothyroxine, folic acid, metoprolol, ezetimibe, and some eyedrops, Combigan, Travatan, Rhopressa, three different types of eyedrops. ALLERGIES: SHE IS ALLERGIC TO LEVAQUIN WHICH CAUSES ANAPHYLAXIS. FAMILY HISTORY: Significant for father and his three brothers having heart disease. REVIEW OF SYSTEMS: She denied any headache. Denies any ear, nose, or throat problems. No change in vision. She did say she has been having some difficulty swallowing, dysphagia, nasal congestion, odynophagia, and she does suffer from dyspnea. Denies any chest pain or palpitation. Respiratory boothe, she had cough and shortness of breath and pain when she coughs in the chest. GI, she had nausea and no vomiting, no constipation. , she denied any dysuria and no hematuria. She is postmenopausal. She has chronic arthritis and had no skin lesions. No neurological deficit focal, and no endocrine issues at this time. Hematological, she had no easy bleeding, but she is on Plavix since she had stents placed, 2 stents, she said. Past medical history is negative for infection or any past medical history and former smoker, no history of alcohol. She lives with her . She does have severe arthritis. No psych issues, and she did have stents placed. PHYSICAL EXAMINATION: VITAL SIGNS: I find her temperature last was 101.6 this morning, otherwise yesterday, she was afebrile. Blood pressure is 96/60, is on the low side. HEENT: Head is atraumatic, normocephalic. Pupils are reacting to light and atraumatic. Eyes movements are unremarkable, and equal and accommodation is present. She was comfortable when I saw her. Mucous membrane is moist. NECK: Supple. JVP is flat. She did have some anterior cervical lymph nodes. LUNGS: Clear, but she has basilar rales bilaterally, right more than left. HEART: S1, S2 are regular. No murmurs appreciated at this time. ABDOMEN: Soft, nontender. No guarding, no rigidity present. EXTREMITIES: Have no edema, clubbing, or cyanosis. Both the legs have more muscle atrophy than the upper body, and she is moving all her extremities. No psych issues. LABORATORY DATA: Her labs were noted. Labs show she came with a hemoglobin 6.4, hemoglobin 10.3, hematocrit 31.7, platelet count of 193. Now, her hemoglobin was 8, WBC is 12.5, hematocrit is 31.7, platelet count is 110, so they need to monitor this closely, and BUN is 20, creatinine is 0.8. She had a chest CT done, and the chest CT which was done yesterday shows patchy infiltrate changing in both lower lobes, right greater than the left. Please refer to the CT of 07/02/2018 for additional details regarding multiple bilateral pulmonary nodules for which followup CAT scan in 6 months, so she had some nodules. She had moderate , and therefore, please refer to details regarding scattered pulmonary nodules. She does have pulmonary nodules before which are also there. At this time, we will cover the patient for aspiration. She is on Rocephin and Flagyl which is adequate at this time, so we will not change it further, and we will follow, and the patient will remain on IV antibiotics for now, and we will follow. IMPRESSION: Aspiration pneumonia. She does have cardiac history and she had stent placement recently, has coronary artery disease, hypertension, hyperlipidemia, rheumatoid arthritis, gastroesophageal reflux disease, glaucoma, and she came with foreign body and underwent the procedure and it has been dislodged. Clemente Vargas MD
[2018-07-04 07:22] LABS: BASO % 0.2 % (0.0-2.0); EOS # 0.1 K/uL (0.0-0.7); EOS % 1.1 % (0.0-4.0); LYMPH # 0.5 K/uL (1.0-4.3); LYMPH % 6.2 % (20.0-40.0); MEAN CELL VOLUME 97.6 fL (81.0-99.0); MEAN CORPUSCULAR HEMOGLOBIN 32.2 pg (27.0-31.0); MEAN PLATELET VOLUME 7.9 fL (7.2-11.7); MONO # 0.4 K/uL (0.0-0.8); MONO % 5.2 % (0.0-10.0); NEUT # 7.6 K/uL (1.8-7.0); NEUT % 87.3 % (50.0-75.0); PLATELET COUNT 102 K/uL (130-400); RBC 2.48 Mil/uL (3.80-5.20); WHITE BLOOD COUNT 8.7 K/uL (4.8-10.8)
--- NOTE | 2018-07-04 07:55 | CP.PCM.PN ---
Subjective - Date & Time of Evaluation Date of Evaluation: 07/04/18 Time of Evaluation: 07:54 - Subjective Subjective: PGY-1 Vicky Myers D.O. Medicine progress note for Dr. Yobany Garcia's service: Patient was seen and examined this morning. Objective - Vital Signs/Intake and Output Vital Signs (last 24 hours): Temp Pulse Resp BP Pulse Ox 99.3 F 89 20 110/55 L 95 07/03/18 23:20 07/03/18 23:20 07/03/18 23:20 07/03/18 23:20 07/03/18 23:20 Intake and Output: 07/04/18 07/04/18 06:59 18:59 Intake Total 450 Balance 450 - Medications Medications: Current Medications Acetaminophen (Tylenol 325mg Tab) 650 mg PO Q6 PRN PRN Reason: Fever >100.4; Pain, Mild (1-3) Aspirin (Aspirin Chewable) 81 mg PO DAILY [facility] Last Admin: 07/03/18 09:13 Dose: 81 mg Clopidogrel Bisulfate (Plavix) 75 mg PO DAILY [facility] Last Admin: 07/03/18 09:13 Dose: 75 mg Folic Acid (Folic Acid) 1 mg PO DAILY [facility] Last Admin: 07/03/18 09:12 Dose: 1 mg Ceftriaxone Sodium (Rocephin Iv 1 Gm Duplex) 50 mls @ 100 mls/hr IVPB DAILY [facility]; Protocol Last Admin: 07/03/18 14:48 Dose: 100 mls/hr Metronidazole (Flagyl) 500 mg in 100 mls @ 100 mls/hr IVPB Q8H [facility]; Protocol Last Admin: 07/04/18 03:32 Dose: 100 mls/hr Dextrose/Sodium Chloride (Dextrose 5%/0.9% Ns 1000 Ml) 1,000 mls @ 50 mls/hr IV .Q20H [facility] Last Admin: 07/03/18 15:20 Dose: 50 mls/hr Lactobacillus Acidophilus (Bacid Acidophilus) 1 cap PO BID [facility] Last Admin: 07/03/18 17:21 Dose: 1 cap Levothyroxine Sodium (Synthroid) 25 mcg PO DAILY@0630 [facility] Last Admin: 07/03/18 06:51 Dose: Not Given Lisinopril (Zestril) 2.5 mg PO DAILY [facility] Last Admin: 07/03/18 11:00 Dose: Not Given Methotrexate (Methotrexate) 10 mg PO Q7D [facility] Metoprolol Tartrate (Lopressor) 25 mg PO BID [facility] Last Admin: 07/03/18 17:21 Dose: Not Given Rosuvastatin Calcium (Crestor) 5 mg PO HS [facility] Last Admin: 07/03/18 21:27 Dose: 5 mg - Labs Labs: 07/04/18 07:09 07/03/18 14:00 PT 11.7 SECONDS (9.7-12.2) 07/02/18 14:18 INR 1.1 07/02/18 14:18 APTT 34 SECONDS (21-34) 07/02/18 14:18 - Additional Findings Additional findings: - Constitutional Appears: Non-toxic, No Acute Distress - Head Exam Head Exam: ATRAUMATIC, NORMAL INSPECTION - Eye Exam Eye Exam: EOMI, Normal appearance - ENT Exam ENT Exam: Mucous Membranes Moist - Neck Exam Neck Exam: Normal Inspection Additional comments: anterior cervical 1x1cm mode- nontender, firm, mobile - Respiratory Exam Respiratory Exam: Rales, NORMAL BREATHING PATTERN. absent: Respiratory Distress - Cardiovascular Exam Cardiovascular Exam: RRR, +S1, +S2 - GI/Abdominal Exam GI & Abdominal Exam: Soft. absent: Distended, Tenderness - Extremities Exam Extremities Exam: Normal Inspection. absent: Pedal Edema - Back Exam Back Exam: NORMAL INSPECTION - Neurological Exam Neurological Exam: Alert, Awake, Oriented x3 - Psychiatric Exam Psychiatric exam: Normal Affect, Normal Mood - Skin Skin Exam: Dry, Normal Color, Warm Assessment and Plan - Assessment and Plan (Free Text) Assessment: Patient is an 78 year old female with history of HTN, HLD, CAD, RA, GERD, hypothyroidism, and glaucoma who presented after getting dried apricots stuck in her esophagus. Imaging shows 2 foreign bodies. GI removed with EGD last night. This morning, patient found to have focal consolidations on CXR as well as fever and leukocytosis. Plan: Pneumonia- suspect aspiration - CXR: focal consolidations in R mid-lower lobes - Most recent fever 101.6 on 07/03 at 8AM - Leukocysotis resolved but L shift - Aspiration precautions - BCx no growth >24 hrs - Rocephin 1 g IV daily- started 07/03 - Flagyl 500 mg IV Q8H- started 1/25 - Lactobacillus BID - ID consulted ([place]) Anemia, stable- suspect dilution with underlying chronic disease - Discontinue IVF - f/u CBC - FOBT pending Foreign bodies in esophagus (food boluses), resolved - CT neck: 4.5 cm retained foreign body is seen at the proximal esophagus immediately inferior to the pharyngo esophageal junction causing pooling of fluid at the hypopharynx as discussed above. No pneumomediastinum or periesophageal fluid collection appreciable. - CT chest: 3.5 cm retained radiodense foreign body appreciated in the mid esophagus apparently reflecting pieces of apricot fruit. This is the 2nd of 2 identified within the esophagus. Please see separate neck CT (07/02/2018 as well) without contrast which demonstrates larger obstructing retained foreign body at the origin of the esophagus. - EGD on 07/02 - Repeat CTs show resolution - Pureed diet - No Protonix as interacts with Plavix; No Pepcid as may promote C. diff colitis in elderly - GI consulted ([place]) Coronary artery disease- s/p stents 2 weeks ago - ASA 81 mg PO daily - Plavix 75 mg PO daily Hypertension - Monitor vitals Q6H - Lisinopril 2.5 mg PO daily - Metoprolol tartrate 25 mg PO BID Hyperlipidemia - Crestor 5 mg PO QHS - On Atorvastatin 10 mg PO daily at home - On Ezetimibe 10 mg PO daily at home Hypothyroidism - Levothyroxine 25 mcg PO daily Glaucoma - Continue home meds - Rhopressa 0.02% 1 drop daily - Combigan eye drops 1 drop BID - Travatan z 0.004% 1 eye drop daily Rheumatoid arthritis - Methotrexate 10 mg PO Q7D (Thu) - Folic acid 1 mg PO daily - Diclofenac sodium 1% gel Q12H PRN - Tylenol 650 mg PO Q6H PRN Left anterior cervical lymphadenopathy - Recommend outpatient follow-up Pulmonary nodules - Hx of smoking- quit 50 yrs ago - CT neck: Incidental biapical fibrosis with at least 2 nodule suspected at the right pulmonary apex under 5 mm greatest dimension for which follow-up CT can be performed in 6 months to demonstrate stability of these findings. - CT chest: Scattered pulmonary nodules are identified, all under 1 cm size which require six-month follow-up CT to demonstrate stability if not already proven benign. Right lower lobe atelectasis favored over infiltrate. - Recommend outpatient follow-up Compression fractures, chronic - CT chest: Kyphotic thoracic spinal deformity due to multilevel [id number] compression fractures likely insufficiency related. Age of these fractures is indeterminate. Ppx: VTE: SCDs, chemical anticoagulation contraindicated in setting of anemia GI: contraindicated Code status: full code Case discussed with attending, Dr. Yobany Garcia.
[2018-07-04 08:15] LABS: ALB/GLOB RATIO 1.1 (1.0-2.1); ALBUMIN 2.8 g/dL (3.5-5.0); ALT/SGPT 20 U/L (9-52); AST/SGOT 20 U/L (14-36); BLOOD UREA NITROGEN 12 mg/dL (7-17); CALCIUM 8.2 mg/dl (8.6-10.4); GFR NON-AFRICAN AMERICAN > 60
[2018-07-04 08:35] LABS: BANDS 1 % (0-2); EOSINOPHIL 1 % (0-4); LYMPHOCYTE 6 % (20-40); MONOCYTE 5 % (0-10); NEUTROPHIL 87 % (50-75); TOTAL CELLS COUNTED 100
[2018-07-04 08:36] LABS: ANISOCYTOSIS SLIGHT; HYPOCHROMIC SLIGHT; PLATELET ESTIMATE SLIGHTLY DECREASED (NORMAL)
[2018-07-04 08:37] LABS: TOXIC GRANULATION PRESENT
--- NOTE | 2018-07-04 09:26 | CP.PCM.PN ---
Subjective - Date & Time of Evaluation Date of Evaluation: 07/04/18 Time of Evaluation: 09:22 - Subjective Subjective: Patient states that her cough is improving. She is able to swallow soft solid food. She denies having chest pain, abdominal pain, nausea, vomiting. She has not had a bowel movement this morning. Objective - Vital Signs/Intake and Output Vital Signs (last 24 hours): Temp Pulse Resp BP Pulse Ox 98.9 F 87 20 123/69 97 07/04/18 07:00 07/04/18 07:00 07/04/18 07:00 07/04/18 07:00 07/04/18 07:00 Intake and Output: 07/04/18 07/04/18 06:59 18:59 Intake Total 450 Balance 450 - Medications Medications: Current Medications Acetaminophen (Tylenol 325mg Tab) 650 mg PO Q6 PRN PRN Reason: Fever >100.4; Pain, Mild (1-3) Aspirin (Aspirin Chewable) 81 mg PO DAILY [facility] Last Admin: 07/03/18 09:13 Dose: 81 mg Clopidogrel Bisulfate (Plavix) 75 mg PO DAILY [facility] Last Admin: 07/03/18 09:13 Dose: 75 mg Folic Acid (Folic Acid) 1 mg PO DAILY [facility] Last Admin: 07/03/18 09:12 Dose: 1 mg Ceftriaxone Sodium (Rocephin Iv 1 Gm Duplex) 50 mls @ 100 mls/hr IVPB DAILY [facility]; Protocol Last Admin: 07/03/18 14:48 Dose: 100 mls/hr Metronidazole (Flagyl) 500 mg in 100 mls @ 100 mls/hr IVPB Q8H [facility]; Protocol Last Admin: 07/04/18 03:32 Dose: 100 mls/hr Dextrose/Sodium Chloride (Dextrose 5%/0.9% Ns 1000 Ml) 1,000 mls @ 50 mls/hr IV .Q20H [facility] Last Admin: 07/03/18 15:20 Dose: 50 mls/hr Lactobacillus Acidophilus (Bacid Acidophilus) 1 cap PO BID [facility] Last Admin: 07/03/18 17:21 Dose: 1 cap Levothyroxine Sodium (Synthroid) 25 mcg PO DAILY@0630 [facility] Last Admin: 07/03/18 06:51 Dose: Not Given Lisinopril (Zestril) 2.5 mg PO DAILY [facility] Last Admin: 07/03/18 11:00 Dose: Not Given Methotrexate (Methotrexate) 10 mg PO Q7D [facility] Metoprolol Tartrate (Lopressor) 25 mg PO BID [facility] Last Admin: 07/03/18 17:21 Dose: Not Given Rosuvastatin Calcium (Crestor) 5 mg PO HS [facility] Last Admin: 07/03/18 21:27 Dose: 5 mg - Labs Labs: 07/04/18 07:09 07/04/18 07:09 PT 11.7 SECONDS (9.7-12.2) 07/02/18 14:18 INR 1.1 07/02/18 14:18 APTT 34 SECONDS (21-34) 07/02/18 14:18 - Constitutional Appears: No Acute Distress - Head Exam Head Exam: ATRAUMATIC, NORMOCEPHALIC - Eye Exam Eye Exam: EOMI, PERRL - Neck Exam Neck Exam: absent: Lymphadenopathy, Thyromegaly - Respiratory Exam Respiratory Exam: NORMAL BREATHING PATTERN. absent: Rales, Rhonchi, Wheezes - Cardiovascular Exam Cardiovascular Exam: REGULAR RHYTHM, +S1, +S2. absent: Gallop, Rubs, Murmur - GI/Abdominal Exam GI & Abdominal Exam: Soft, Normal Bowel Sounds. absent: Tenderness, Mass, Organomegaly - Rectal Exam Rectal Exam: Deferred - Extremities Exam Extremities Exam: absent: Calf Tenderness, Pedal Edema Assessment and Plan (1) Esophageal obstruction due to food impaction Assessment & Plan: Patient states that she is able to swallow soft food. Will start pantoprazole. Status: Acute (2) Aspiration pneumonia Assessment & Plan: Patient remains afebrile. The oxygen saturation this morning is 97% on room air. Will repeat CXR. Status: Acute
[2018-07-04] MEDS ORDERED: Pantoprazole 40 mg EC Tab PO SCH (10:00)
[2018-07-04] MEDS: cefTRIAXone IV 1 gm in Dextros 50 ML IVPB SCH (10:32)
[2018-07-04] MEDS: Lactobacillus Acidophilus 500 MU Cap PO SCH ×2 (10:38→17:20)
[2018-07-04] MEDS: Dextrose 5%/0.9% NS 1,000 ML IV SCH ×2 (13:19→17:21)
--- NOTE | 2018-07-04 18:21 | CP.PCM.PN ---
Subjective - Date & Time of Evaluation Date of Evaluation: 07/04/18 Time of Evaluation: 17:45 - Subjective Subjective: dictated Objective - Vital Signs/Intake and Output Vital Signs (last 24 hours): Temp Pulse Resp BP Pulse Ox 99.1 F 78 20 116/68 98 07/04/18 16:00 07/04/18 16:00 07/04/18 16:00 07/04/18 17:20 07/04/18 16:00 Intake and Output: 07/04/18 07/04/18 06:59 18:59 Intake Total 1350 Output Total 0 Balance 1350 - Medications Medications: Current Medications Acetaminophen (Tylenol 325mg Tab) 650 mg PO Q6 PRN PRN Reason: Fever >100.4; Pain, Mild (1-3) Last Admin: 07/04/18 11:42 Dose: 650 mg Aspirin (Aspirin Chewable) 81 mg PO DAILY [facility] Last Admin: 07/04/18 10:40 Dose: 81 mg Clopidogrel Bisulfate (Plavix) 75 mg PO DAILY [facility] Last Admin: 07/04/18 10:40 Dose: 75 mg Folic Acid (Folic Acid) 1 mg PO DAILY [facility] Last Admin: 07/04/18 10:39 Dose: 1 mg Ceftriaxone Sodium (Rocephin Iv 1 Gm Duplex) 50 mls @ 100 mls/hr IVPB DAILY [facility]; Protocol Last Admin: 07/04/18 10:32 Dose: 100 mls/hr Metronidazole (Flagyl) 500 mg in 100 mls @ 100 mls/hr IVPB Q8H [facility]; Protocol Last Admin: 07/04/18 11:34 Dose: 100 mls/hr Dextrose/Sodium Chloride (Dextrose 5%/0.9% Ns 1000 Ml) 1,000 mls @ 50 mls/hr IV .Q20H [facility] Last Admin: 07/04/18 17:21 Dose: 50 mls/hr Lactobacillus Acidophilus (Bacid Acidophilus) 1 cap PO BID [facility] Last Admin: 07/04/18 17:20 Dose: 1 cap Levothyroxine Sodium (Synthroid) 25 mcg PO DAILY@0630 [facility] Last Admin: 07/03/18 06:51 Dose: Not Given Lisinopril (Zestril) 2.5 mg PO DAILY [facility] Last Admin: 07/04/18 11:00 Dose: 2.5 mg Methotrexate (Methotrexate) 10 mg PO Q7D [facility] Metoprolol Tartrate (Lopressor) 25 mg PO BID [facility] Last Admin: 07/04/18 17:20 Dose: 25 mg Pantoprazole Sodium (Protonix Ec Tab) 40 mg PO DAILY [facility] Last Admin: 07/04/18 13:00 Dose: Not Given Rosuvastatin Calcium (Crestor) 5 mg PO HS [facility] Last Admin: 07/03/18 21:27 Dose: 5 mg - Labs Labs: 07/04/18 07:09 07/04/18 07:09 PT 11.7 SECONDS (9.7-12.2) 07/02/18 14:18 INR 1.1 07/02/18 14:18 APTT 34 SECONDS (21-34) 07/02/18 14:18
--- NOTE | 2018-07-04 18:56 | RAD ---
Chest x-ray two views HISTORY: Aspiration pneumonia. Comparison: 07/03/2018 Findings: Prominent consolidative opacities seen within the mid to lower lung zones concerning for aspiration pneumonia. Enlarged ectatic aorta. Widened mediastinum. Cardiomegaly. Left-sided pacemaker. Deformity of the right proximal humerus. Degenerative changes in the spine and shoulders. Impression: Prominent consolidative opacities seen within the mid to lower lung zones concerning for aspiration pneumonia. Enlarged ectatic aorta. Widened mediastinum. Cardiomegaly. Left-sided pacemaker. Deformity of the right proximal humerus.
--- NOTE | 2018-07-04 21:26 | CP.PCM.PCO ---
Physician Communication Note - Physician Communication Note Physician Communication Note: held dmard/immunosuppressive in light of pneumonia
--- NOTE | 2018-07-04 23:48 | PN ---
DATE: 07/04/2018 INFECTIOUS DISEASE FOLLOWUP SUBJECTIVE: The patient is better today. She had a bowel movement. She . She is eating pureed diet at this time. She states she still feels something in the throat, but does feel because she had the procedure done. Cough is getting better. She has no trouble swallowing now and able to eat soft diet. PHYSICAL EXAMINATION: VITAL SIGNS: T-max is 99.1 right now, pulse 78, blood pressure 116/68, respirations 20, saturations 98%. GENERAL: She is alert, awake. She recognizes me. Her also at the bedside. HEENT: Head is atraumatic and normocephalic. NECK: Supple. LUNGS: Clear. No crackles or rales heard on the right base. Left lung, a few crackles on the left base. HEART: S1 and S2 is present. ABDOMEN: Soft and nontender. No guarding. No rigidity present. She has a defibrillator on the left side of her chest wall. EXTREMITIES: Have no edema and very thin. She does have arthritic changes in both hands. LABORATORY DATA: White count is 8.7 today, hemoglobin 8, hematocrit 24.2, and platelet count is 102, so it is low. Sodium is 134, potassium 4.2, chloride 108, CO2 22, BUN is 12, creatinine 0.6. The patient had esophageal obstruction due to foreign body, which was removed and had aspiration pneumonia and chest x-ray was done today, repeat is pending. We will follow recommendations of GI as she may be able to go when they decide. May need a few days of oral antibiotics. She does have aspiration pneumonia and is already probably improving. Clemente Vargas MD
[2018-07-05] MEDS: metroNIDAZOLE IV 500 mg/100 ml 500 MG/100 ML BAG IVPB SCH ×3 (02:03→18:51)
[2018-07-05] MEDS: Levothyroxine 25 MCG TAB PO SCH (06:14)
[2018-07-05 08:12] LABS: BASO % 0.3 % (0.0-2.0); EOS # 0.1 K/uL (0.0-0.7); EOS % 1.8 % (0.0-4.0); HEMOGLOBIN 8.2 g/dL (11.0-16.0); LYMPH # 0.6 K/uL (1.0-4.3); LYMPH % 8.8 % (20.0-40.0); MEAN CELL VOLUME 96.4 fL (81.0-99.0); MEAN CORPUSCULAR HEMOGLOBIN 31.9 pg (27.0-31.0); MEAN CORPUSCULAR HGB CONC 33.1 g/dL (33.0-37.0); MEAN PLATELET VOLUME 7.6 fL (7.2-11.7); MONO # 0.2 K/uL (0.0-0.8); MONO % 2.8 % (0.0-10.0); NEUT # 5.5 K/uL (1.8-7.0); NEUT % 86.3 % (50.0-75.0); PLATELET COUNT 110 K/uL (130-400); RBC 2.56 Mil/uL (3.80-5.20); RED CELL DISTRIBUTION WIDTH 14.6 % (11.5-14.5); WHITE BLOOD COUNT 6.4 K/uL (4.8-10.8)
--- NOTE | 2018-07-05 08:12 | CP.PCM.PN ---
Subjective - Date & Time of Evaluation Date of Evaluation: 07/05/18 Time of Evaluation: 08:11 - Subjective Subjective: PGY-1 Vicky Myers D.O. Medicine progress note for Dr. Garcia's service: Patient was seen and examined this morning. She says she is feeling fine. She continues to have a dry cough. She is not short of breath. She has residual th roat pain but is tolerating a pureed diet. Objective - Vital Signs/Intake and Output Vital Signs (last 24 hours): Temp Pulse Resp BP Pulse Ox 98.6 F 74 18 123/67 98 07/05/18 07:00 07/05/18 07:00 07/05/18 07:00 07/05/18 07:00 07/05/18 07:00 Intake and Output: 07/05/18 07/05/18 06:59 18:59 Intake Total 210 Output Total 600 Balance -390 - Medications Medications: Current Medications Acetaminophen (Tylenol 325mg Tab) 650 mg PO Q6 PRN PRN Reason: Fever >100.4; Pain, Mild (1-3) Last Admin: 07/04/18 11:42 Dose: 650 mg Aspirin (Aspirin Chewable) 81 mg PO DAILY [facility] Last Admin: 07/04/18 10:40 Dose: 81 mg Clopidogrel Bisulfate (Plavix) 75 mg PO DAILY [facility] Last Admin: 07/04/18 10:40 Dose: 75 mg Famotidine (Pepcid) 20 mg PO BID [facility] Folic Acid (Folic Acid) 1 mg PO DAILY [facility] Last Admin: 07/04/18 10:39 Dose: 1 mg Ceftriaxone Sodium (Rocephin Iv 1 Gm Duplex) 50 mls @ 100 mls/hr IVPB DAILY [facility]; Protocol Last Admin: 07/04/18 10:32 Dose: 100 mls/hr Metronidazole (Flagyl) 500 mg in 100 mls @ 100 mls/hr IVPB Q8H [facility]; Protocol Last Admin: 07/05/18 02:03 Dose: 100 mls/hr Lactobacillus Acidophilus (Bacid Acidophilus) 1 cap PO BID [facility] Last Admin: 07/04/18 17:20 Dose: 1 cap Levothyroxine Sodium (Synthroid) 25 mcg PO DAILY@0630 [facility] Last Admin: 07/05/18 06:14 Dose: 25 mcg Lisinopril (Zestril) 2.5 mg PO DAILY [facility] Last Admin: 07/04/18 11:00 Dose: 2.5 mg Methotrexate (Methotrexate) 10 mg PO Q7D [facility] Metoprolol Tartrate (Lopressor) 25 mg PO BID [facility] Last Admin: 07/04/18 17:20 Dose: 25 mg Rosuvastatin Calcium (Crestor) 5 mg PO HS [facility] Last Admin: 07/04/18 21:46 Dose: 5 mg - Labs Labs: 07/04/18 07:09 07/04/18 07:09 PT 11.7 SECONDS (9.7-12.2) 07/02/18 14:18 INR 1.1 07/02/18 14:18 APTT 34 SECONDS (21-34) 07/02/18 14:18 - Additional Findings Additional findings: - Constitutional Appears: Non-toxic, No Acute Distress - Head Exam Head Exam: ATRAUMATIC, NORMAL INSPECTION - Eye Exam Eye Exam: EOMI, Normal appearance - ENT Exam ENT Exam: Mucous Membranes Moist - Neck Exam Neck Exam: Normal Inspection Additional comments: anterior cervical 1x1cm mode- nontender, firm, mobile - Respiratory Exam Respiratory Exam: Rales, NORMAL BREATHING PATTERN. absent: Respiratory Distress - Cardiovascular Exam Cardiovascular Exam: RRR, +S1, +S2 - GI/Abdominal Exam GI & Abdominal Exam: Soft. absent: Distended, Tenderness - Extremities Exam Extremities Exam: Normal Inspection. absent: Pedal Edema - Back Exam Back Exam: NORMAL INSPECTION - Neurological Exam Neurological Exam: Alert, Awake, Oriented x3 - Psychiatric Exam Psychiatric exam: Normal Affect, Normal Mood - Skin Skin Exam: Dry, Normal Color, Warm Assessment and Plan - Assessment and Plan (Free Text) Assessment: Patient is an 78 year old female with history of HTN, HLD, CAD, RA, GERD, hypothyroidism, and glaucoma who presented after getting dried apricots stuck in her esophagus. Imaging shows 2 foreign bodies. GI removed with EGD. Patient with fever the following morning and CXR showed focal consolidation, suspect aspiration pneumonia. Plan: Pneumonia- suspect aspiration - CXR: focal consolidations in R mid-lower lobes - Most recent fever 101.6 on 07/03 at 8AM - Leukocysotis resolved but L shift - Aspiration precautions - BCx no growth >48 hrs - Duoneb Q6H - Mucinex 600 mg PO BID - Rocephin 1 g IV daily- started 07/03 - Flagyl 500 mg IV Q8H- started 07/02 - Lactobacillus BID - ID consulted ([place]) Anemia, stable- suspect dilution with underlying chronic disease - Patient reports she takes iron pill at home - Monitor CBC - FOBT positive- patient is up-to-date with colonoscopy - Iron <10, ferritin wnl - B12, folate wnl Foreign bodies in esophagus (food boluses), resolved - CT neck: 4.5 cm retained foreign body is seen at the proximal esophagus immediately inferior to the pharyngo esophageal junction causing pooling of f luid at the hypopharynx as discussed above. No pneumomediastinum or periesophageal fluid collection appreciable. - CT chest: 3.5 cm retained radiodense foreign body appreciated in the mid esophagus apparently reflecting pieces of apricot fruit. This is the 2nd of 2 identified within the esophagus. Please see separate neck CT (07/02/2018 as well) without contrast which demonstrates larger obstructing retained foreign body at the origin of the esophagus. - EGD on 07/02 - Repeat CTs show resolution - Pureed diet - No Protonix as interacts with Plavix; No Pepcid as may promote C. diff colitis in elderly - GI consulted ([place]) Coronary artery disease- s/p stents 2 weeks ago - ASA 81 mg PO daily - Plavix 75 mg PO daily Hypertension - Monitor vitals Q6H - Lisinopril 2.5 mg PO daily - Metoprolol tartrate 25 mg PO BID Hyperlipidemia - Crestor 5 mg PO QHS - On Atorvastatin 10 mg PO daily at home - On Ezetimibe 10 mg PO daily at home Hypothyroidism - Levothyroxine 25 mcg PO daily Glaucoma - Continue home meds - Rhopressa 0.02% 1 drop daily - Combigan eye drops 1 drop BID - Travatan z 0.004% 1 eye drop daily Rheumatoid arthritis - Methotrexate 10 mg PO Q7D (Thu)- hold due to PNA - Folic acid 1 mg PO daily - Diclofenac sodium 1% gel Q12H PRN - Tylenol 650 mg PO Q6H PRN Left anterior cervical lymphadenopathy - Recommend outpatient follow-up Pulmonary nodules - Hx of smoking- quit 50 yrs ago - CT neck: Incidental biapical fibrosis with at least 2 nodule suspected at the right pulmonary apex under 5 mm greatest dimension for which follow-up CT can be performed in 6 months to demonstrate stability of these findings. - CT chest: Scattered pulmonary nodules are identified, all under 1 cm size which require six-month follow-up CT to demonstrate stability if not already proven benign. Right lower lobe atelectasis favored over infiltrate. - Recommend outpatient follow-up Compression fractures, chronic - CT chest: Kyphotic thoracic spinal deformity due to multilevel [id number] compression fractures likely insufficiency related. Age of the se fractures is indeterminate. Ppx: VTE: SCDs, chemical anticoagulation contraindicated in setting of anemia GI: contraindicated Code status: full code Case discussed with attending, Dr. Garcia.
[2018-07-05 08:31] LABS: ALB/GLOB RATIO 1.2 (1.0-2.1); ALT/SGPT 23 U/L (9-52); AST/SGOT 21 U/L (14-36); BLOOD UREA NITROGEN 10 mg/dL (7-17); CALCIUM 8.5 mg/dl (8.6-10.4); GFR NON-AFRICAN AMERICAN > 60
[2018-07-05] MEDS: Magnesium Sulfate 1 gm in D5W 1 GM/100 ML BAG IVPB SCH ×2 (09:18→09:37)
[2018-07-05] MEDS: cefTRIAXone IV 1 gm in Dextros 50 ML IVPB SCH (09:19)
[2018-07-05 09:23] LABS: EOSINOPHIL 1 % (0-4); LYMPHOCYTE 8 % (20-40); MONOCYTE 1 % (0-10); NEUTROPHIL 90 % (50-75); TOTAL CELLS COUNTED 100
[2018-07-05 09:24] LABS: ANISOCYTOSIS SLIGHT; HYPOCHROMIC SLIGHT; PLATELET ESTIMATE SLIGHTLY DECREASED (NORMAL); POIKILOCYTOSIS SLIGHT; TEARDROP CELLS SLIGHT
--- NOTE | 2018-07-05 09:31 | CP.PCM.PN ---
Subjective - Date & Time of Evaluation Date of Evaluation: 07/05/18 Time of Evaluation: 09:29 - Subjective Subjective: Patient complains of weakness, nausea and non-productive cough. She is tolerating soft solid food, but her appetiite is poor today. She denies having vomiting, difficulty swallowing, chest pain, abdominal pain. She had a small bowel movement yesterday, but none today. Objective - Vital Signs/Intake and Output Vital Signs (last 24 hours): Temp Pulse Resp BP Pulse Ox 98.6 F 74 18 123/67 98 07/05/18 07:00 07/05/18 07:00 07/05/18 07:00 07/05/18 09:17 07/05/18 07:00 Intake and Output: 07/05/18 07/05/18 06:59 18:59 Intake Total 210 Output Total 600 Balance -390 - Medications Medications: Current Medications Acetaminophen (Tylenol 325mg Tab) 650 mg PO Q6 PRN PRN Reason: Fever >100.4; Pain, Mild (1-3) Last Admin: 07/04/18 11:42 Dose: 650 mg Aspirin (Aspirin Chewable) 81 mg PO DAILY [facility] Last Admin: 07/05/18 09:18 Dose: 81 mg Clopidogrel Bisulfate (Plavix) 75 mg PO DAILY [facility] Last Admin: 07/05/18 09:17 Dose: 75 mg Famotidine (Pepcid) 20 mg PO BID [facility] Last Admin: 07/05/18 09:18 Dose: 20 mg Folic Acid (Folic Acid) 1 mg PO DAILY [facility] Last Admin: 07/05/18 09:18 Dose: 1 mg Ceftriaxone Sodium (Rocephin Iv 1 Gm Duplex) 50 mls @ 100 mls/hr IVPB DAILY [facility]; Protocol Last Admin: 07/05/18 09:19 Dose: 100 mls/hr Metronidazole (Flagyl) 500 mg in 100 mls @ 100 mls/hr IVPB Q8H [facility]; Protocol Last Admin: 07/05/18 02:03 Dose: 100 mls/hr Magnesium Sulfate/Dextrose (Magnesium Sulfate 1 Gm/100 Ml D5w) 1 gm in 100 mls @ 300 mls/hr IVPB Q30M [facility] Stop: 07/05/18 09:49 Last Admin: 07/05/18 09:18 Dose: 300 mls/hr Lactobacillus Acidophilus (Bacid Acidophilus) 1 cap PO BID [facility] Last Admin: 07/04/18 17:20 Dose: 1 cap Levothyroxine Sodium (Synthroid) 25 mcg PO DAILY@0630 [facility] Last Admin: 07/05/18 06:14 Dose: 25 mcg Lisinopril (Zestril) 2.5 mg PO DAILY [facility] Last Admin: 07/04/18 11:00 Dose: 2.5 mg Methotrexate (Methotrexate) 10 mg PO Q7D [facility] Metoprolol Tartrate (Lopressor) 25 mg PO BID [facility] Last Admin: 07/05/18 09:17 Dose: 25 mg Rosuvastatin Calcium (Crestor) 5 mg PO HS [facility] Last Admin: 07/04/18 21:46 Dose: 5 mg - Labs Labs: 07/05/18 07:59 07/05/18 07:59 PT 11.7 SECONDS (9.7-12.2) 07/02/18 14:18 INR 1.1 07/02/18 14:18 APTT 34 SECONDS (21-34) 07/02/18 14:18 - Constitutional Appears: No Acute Distress - Head Exam Head Exam: ATRAUMATIC, NORMOCEPHALIC - Eye Exam Eye Exam: EOMI, PERRL - Neck Exam Neck Exam: absent: Lymphadenopathy, Thyromegaly - Respiratory Exam Respiratory Exam: NORMAL BREATHING PATTERN. absent: Rales, Rhonchi, Wheezes - Cardiovascular Exam Cardiovascular Exam: REGULAR RHYTHM, +S1, +S2. absent: Gallop, Rubs, Murmur - GI/Abdominal Exam GI & Abdominal Exam: Soft, Normal Bowel Sounds. absent: Tenderness, Mass, Organomegaly - Rectal Exam Rectal Exam: Deferred - Extremities Exam Extremities Exam: absent: Calf Tenderness, Pedal Edema Additional comments: Deformity of hands secondary to rheumatoid arthritis Assessment and Plan (1) Esophageal obstruction due to food impaction Assessment & Plan: She is able to swallow soft solid food. Continue diet. Status: Acute (2) Aspiration pneumonia Assessment & Plan: Patient complains of weakness, nausea, poor appetite and cough. She remains afebrile, with adequate BP and O2 saturation on 2 liters by nasal cannula. Will continue antibiotics for now and repeat CXR tomorrow. Status: Acute
[2018-07-05] MEDS: Lactobacillus Acidophilus 500 MU Cap PO SCH ×2 (09:35→18:01)
[2018-07-05 11:49] LABS: IRON < 10 ug/dL (37-170)
[2018-07-05 12:05] LABS: TOTAL IRON BINDING CAPACITY 219 ug/dL (250-450)
[2018-07-05 12:07] LABS: % IRON SATURATION 4.6 (20-55)
--- NOTE | 2018-07-05 12:08 | CARD ---
APPROVED REPORT Date of service: 07/02/2018 EKG Measurement Heart [id number] <Conclusion> Normal sinus rhythm Nonspecific intraventricular block Cannot rule out Anterior infarct, age undetermined T wave abnormality, consider lateral ischemia Abnormal ECG
[2018-07-05 12:54] LABS: FOLATE > 20.0 ng/mL
[2018-07-05 16:09] VITALS: RESP 20
[2018-07-05] MEDS: guaiFENesin 600 mg ER Tab PO SCH (18:05)
[2018-07-05] MEDS: Albuterol-Ipratrop 3 mg / 0.5 (3 ml) UD INH SCH (19:17)
--- NOTE | 2018-07-05 21:24 | CP.PCM.PN ---
Subjective - Date & Time of Evaluation Date of Evaluation: 07/05/18 Time of Evaluation: 17:30 - Subjective Subjective: dictated Objective - Vital Signs/Intake and Output Vital Signs (last 24 hours): Temp Pulse Resp BP Pulse Ox 99.0 F 77 20 104/67 94 L 07/05/18 16:00 07/05/18 16:00 07/05/18 16:00 07/05/18 16:00 07/05/18 16:00 Intake and Output: 07/05/18 07/06/18 18:59 06:59 Intake Total 650 Balance 650 - Medications Medications: Current Medications Acetaminophen (Tylenol 325mg Tab) 650 mg PO Q6 PRN PRN Reason: Fever >100.4; Pain, Mild (1-3) Last Admin: 07/05/18 18:08 Dose: 650 mg Albuterol/Ipratropium (Duoneb 3 Mg/0.5 Mg (3 Ml) Ud) 3 ml INH RQ6 [facility] Last Admin: 07/05/18 19:17 Dose: 3 ml Aspirin (Aspirin Chewable) 81 mg PO DAILY [facility] Last Admin: 07/05/18 09:18 Dose: 81 mg Clopidogrel Bisulfate (Plavix) 75 mg PO DAILY [facility] Last Admin: 07/05/18 09:17 Dose: 75 mg Folic Acid (Folic Acid) 1 mg PO DAILY [facility] Last Admin: 07/05/18 09:18 Dose: 1 mg Guaifenesin (Mucinex La) 600 mg PO BID [facility] Last Admin: 07/05/18 18:05 Dose: 600 mg Ceftriaxone Sodium (Rocephin Iv 1 Gm Duplex) 50 mls @ 100 mls/hr IVPB DAILY [facility]; Protocol Last Admin: 07/05/18 09:19 Dose: 100 mls/hr Metronidazole (Flagyl) 500 mg in 100 mls @ 100 mls/hr IVPB Q8H [facility]; Protocol Last Admin: 07/05/18 18:51 Dose: 100 mls/hr Lactobacillus Acidophilus (Bacid Acidophilus) 1 cap PO BID [facility] Last Admin: 07/05/18 18:01 Dose: 1 cap Levothyroxine Sodium (Synthroid) 25 mcg PO DAILY@0630 [facility] Last Admin: 07/05/18 06:14 Dose: 25 mcg Lisinopril (Zestril) 2.5 mg PO DAILY [facility] Last Admin: 07/05/18 09:35 Dose: 2.5 mg Methotrexate (Methotrexate) 10 mg PO Q7D [facility] Metoprolol Tartrate (Lopressor) 25 mg PO BID [facility] Last Admin: 07/05/18 18:05 Dose: Not Given Ondansetron HCl (Zofran Inj) 4 mg IVP ONCE PRN PRN Reason: Nausea/Vomiting Last Admin: 07/05/18 11:20 Dose: 4 mg Rosuvastatin Calcium (Crestor) 5 mg PO HS [facility] Last Admin: 07/05/18 21:06 Dose: 5 mg - Labs Labs: 07/05/18 07:59 07/05/18 07:59 PT 11.7 SECONDS (9.7-12.2) 07/02/18 14:18 INR 1.1 07/02/18 14:18 APTT 34 SECONDS (21-34) 07/02/18 14:18
[2018-07-06 01:00] VITALS: TEMP 97.6
[2018-07-06] MEDS: Albuterol-Ipratrop 3 mg / 0.5 (3 ml) UD INH SCH ×2 (01:18→07:15)
--- NOTE | 2018-07-06 01:59 | PN ---
DATE: 07/05/2018 INFECTIOUS DISEASE FOLLOWUP SUBJECTIVE: The patient was seen today. She is not eating much; however, she says she has not much trouble with swallowing, but she has poor appetite. She had a normal BM. She denies much cough. PHYSICAL EXAMINATION: VITAL SIGNS: T-max is 99, pulse 77, blood pressure 104/67, respirations are 20. HEAD: Atraumatic, normocephalic. NECK: Supple. LUNGS: She has some crackles on left base. Occasional crackles. HEART: S1 and S2 are regular, but she has a systolic murmur almost sounded like a gallop to me. ABDOMEN: Soft, nontender. No guarding. No rigidity present. EXTREMITIES: Has no edema. ASSESSMENT AND PLAN: She came in and she had a gastrointestinal procedure done for esophageal obstruction and has aspiration pneumonia. Chest x-ray has been ordered for tomorrow. We will continue Rocephin and Flagyl and follow up with chest x-ray report and if the x-ray is improving, then may be we can switch her to oral antibiotic and get her home. I would consider Augmentin for few days as an oral choice, but we will see how she does on the chest x-ray. Clemente Vargas MD
[2018-07-06] MEDS: metroNIDAZOLE IV 500 mg/100 ml 500 MG/100 ML BAG IVPB SCH ×2 (02:38→11:45)
[2018-07-06] MEDS: Levothyroxine 25 MCG TAB PO SCH (06:10)
[2018-07-06 07:03] LABS: BASO % 0.5 % (0.0-2.0); EOS # 0.2 K/uL (0.0-0.7); EOS % 3.2 % (0.0-4.0); HEMOGLOBIN 7.9 g/dL (11.0-16.0); LYMPH # 0.5 K/uL (1.0-4.3); LYMPH % 8.9 % (20.0-40.0); MEAN CELL VOLUME 96.3 fL (81.0-99.0); MEAN CORPUSCULAR HEMOGLOBIN 32.7 pg (27.0-31.0); MEAN CORPUSCULAR HGB CONC 33.9 g/dL (33.0-37.0); MONO # 0.2 K/uL (0.0-0.8); NEUT # 4.3 K/uL (1.8-7.0); NEUT % 83.4 % (50.0-75.0); PLATELET COUNT 100 K/uL (130-400); RBC 2.43 Mil/uL (3.80-5.20); RED CELL DISTRIBUTION WIDTH 14.4 % (11.5-14.5); WHITE BLOOD COUNT 5.2 K/uL (4.8-10.8)
--- NOTE | 2018-07-06 07:04 | CP.PCM.DIS ---
Provider - Provider Date of Admission: 07/02/18 16:21 Attending physician: Jeniffer Garcia DO Primary care physician: Dr. Stanton Consults: 07/02/18 15:54 Physician Consult Stat Comment: Consulting Provider: John Schultz Consulting Physician: John Schultz Reason for Consult: esophageal foreign body 07/03/18 11:52 Infectious Disease Consult Routine Comment: Aspiration Pneumonia. Rocephin and Flagyl started Consulting Provider: Clemente Vargas Consulting Physician: Clemente Vargas Reason for Consult: Had Apricot x2 stuck in Esophagus. Likely Asp Pneumonia Time Spent in preparation of Discharge (in minutes): 45 Diagnosis - Discharge Diagnosis (1) Esophageal obstruction due to food impaction Status: Resolved Priority: High (2) Aspiration pneumonia Status: Acute Priority: High (3) History of heart artery stent Status: Chronic Priority: Medium (4) Anemia Status: Chronic Priority: Medium (5) Hypothyroidism Status: Chronic Priority: Low (6) HTN (hypertension) Status: Chronic Priority: Low (7) HLD (hyperlipidemia) Status: Chronic Priority: Low (8) Glaucoma Status: Chronic Priority: Low (9) Rheumatoid arthritis Status: Chronic Priority: Low Hospital Course - Lab Results Lab Results: Micro Results 07/03/18 14:35 Blood Blood Culture - Preliminary NO GROWTH AFTER 48 HOURS 07/03/18 13:50 Blood Blood Culture - Preliminary NO GROWTH AFTER 48 HOURS 07/03/18 22:23 Urine Random Urine Culture - Final No Growth (<1,000 CFU/ML) Most Recent Lab Values WBC 6.4 K/uL (4.8-10.8) 07/05/18 07:59 RBC 2.56 Mil/uL (3.80-5.20) L 07/05/18 07:59 Hgb 8.2 g/dL (11.0-16.0) L 07/05/18 07:59 Hct 24.7 % (34.0-47.0) L 07/05/18 07:59 MCV 96.4 fL (81.0-99.0) 07/05/18 07:59 MCH 31.9 pg (27.0-31.0) H 07/05/18 07:59 MCHC 33.1 g/dL (33.0-37.0) 07/05/18 07:59 RDW 14.6 % (11.5-14.5) H 07/05/18 07:59 Plt Count 110 K/uL (130-400) L 07/05/18 07:59 MPV 7.6 fL (7.2-11.7) 07/05/18 07:59 Neut % (Auto) 86.3 % (50.0-75.0) H 07/05/18 07:59 Lymph % (Auto) 8.8 % (20.0-40.0) L 07/05/18 07:59 Nobles % (Auto) 2.8 % (0.0-10.0) 07/05/18 07:59 Eos % (Auto) 1.8 % (0.0-4.0) 07/05/18 07:59 Baso % (Auto) 0.3 % (0.0-2.0) 07/05/18 07:59 Neut # (Auto) 5.5 K/uL (1.8-7.0) 07/05/18 07:59 Lymph # (Auto) 0.6 K/uL (1.0-4.3) L 07/05/18 07:59 Nobles # (Auto) 0.2 K/uL (0.0-0.8) 07/05/18 07:59 Eos # (Auto) 0.1 K/uL (0.0-0.7) 07/05/18 07:59 Baso # (Auto) 0.0 K/uL (0.0-0.2) 07/05/18 07:59 Neutrophils % (Manual) 90 % (50-75) H 07/05/18 07:59 Band Neutrophils % 1 % (0-2) 07/04/18 07:09 Lymphocytes % (Manual) 8 % (20-40) L 07/05/18 07:59 Monocytes % (Manual) 1 % (0-10) 07/05/18 07:59 Eosinophils % (Manual) 1 % (0-4) 07/05/18 07:59 Toxic Granulation Present 07/04/18 07:09 Platelet Estimate Slightly decreased (NORMAL) L 07/05/18 07:59 Hypochromasia (manual) Slight 07/05/18 07:59 Poikilocytosis (manual Slight 07/05/18 07:59 Anisocytosis (manual) Slight 07/05/18 07:59 Macrocytosis (manual) Slight 07/04/18 07:09 Tear Drop Cells Slight 07/05/18 07:59 Ovalocytes Slight 07/03/18 14:00 Retic Count 1.0 % (0.5-1.5) 07/05/18 11:18 PT 11.7 SECONDS (9.7-12.2) 07/02/18 14:18 INR 1.1 07/02/18 14:18 APTT 34 SECONDS (21-34) 07/02/18 14:18 Sodium 135 mmol/L (132-148) 07/05/18 07:59 Potassium 4.1 mmol/L (3.6-5.2) 07/05/18 07:59 Chloride 107 mmol/L (98-107) 07/05/18 07:59 Carbon Dioxide 21 mmol/L (22-30) L 07/05/18 07:59 Anion Gap 11 (10-20) 07/05/18 07:59 BUN 10 mg/dL (7-17) 07/05/18 07:59 Creatinine 0.6 mg/dL (0.7-1.2) L 07/05/18 07:59 Est GFR ( Amer) > 60 07/05/18 07:59 Est GFR (Non-Af Amer) > 60 07/05/18 07:59 Random Glucose 66 mg/dL (65-105) D 07/05/18 07:59 Calcium 8.5 mg/dl (8.6-10.4) L 07/05/18 07:59 Phosphorus 3.6 mg/dL (2.5-4.5) 07/05/18 07:59 Magnesium 1.4 mg/dL (1.6-2.3) L 07/05/18 07:59 Iron < 10 ug/dL (37-170) L 07/05/18 11:18 TIBC 219 ug/dL (250-450) L 07/05/18 11:18 % Saturation 4.6 (20-55) L 07/05/18 11:18 Ferritin 970.0 ng/mL 07/05/18 11:18 Total Bilirubin 0.7 mg/dL (0.2-1.3) 07/05/18 07:59 AST 21 U/L (14-36) 07/05/18 07:59 ALT 23 U/L (9-52) 07/05/18 07:59 Alkaline Phosphatase 63 U/L (38-126) 07/05/18 07:59 Total Protein 5.6 g/dL (6.3-8.3) L 07/05/18 07:59 Albumin 3.0 g/dL (3.5-5.0) L 07/05/18 07:59 Globulin 2.6 gm/dL (2.2-3.9) 07/05/18 07:59 Albumin/Globulin Ratio 1.2 (1.0-2.1) 07/05/18 07:59 Vitamin B12 > 1000 pg/mL (239-931) H 07/05/18 11:18 Folate > 20.0 ng/mL 07/05/18 11:18 Stool Occult Blood Positive (NEGATIVE) H 07/05/18 02:32 Influenza Typ A,B (EIA) Negative for flu a/b (NEGATIVE) 07/03/18 12:50 Blood Type B POSITIVE 07/02/18 14:18 Antibody Screen Negative 07/02/18 14:18 - Hospital Course Hospital Course: Patient is an 78 year old female with past medical history of HTN, HLD, CAD, RA, GERD, hypothyroidism, and glaucoma who presented to the ED with the feeling like something is caught in her throat. She was eating dried apricots 4 hours ago during her lunch when her upper and lower dentures became dislodged, and she accidentally swallowed the apricots whole. She reports that she is unable to swallow even her secretions. She also reports a cough due to the discomfort in her throat and is producing a lot of clear saliva. She is able to speak and breathe without respiratory distress but does complain of pain with deep breaths. Patient denies dizziness, chest pain, palpitations, SOB, stomach pain, dysuria. This has never happened to her before CT neck showed 4.5 cm retained foreign body seen at the proximal esophagus immediately inferior to the pharyngo esophageal junction causing pooling of fluid at the hypopharynx and no pneumomediastinum or periesophageal fluid collection was appreciable. CT chest showed a second 3.5 cm retained radiodense foreign body appreciated in the mid esophagus apparently reflecting pieces of apricot fruit. Flexible laryngoscopy showed secretions pooled in the piriform sinuses. Chest Xray on admission showed cardiomegaly, extatic aorta, dense atherosclerotic calcifications, and a dual lead left-sided pacemaker. Patient was started on Zofran 4 mg IV, glucagon in ED, D5NS @ 90 mL/hr and was placed NPO. GI (Dr. Magana) performed esophagogastroduodenoscopy, and the 2 foreign bodies were removed. Resolution was confirmed with repeat CTs. Patient was begun on a pureed diet. Patient displayed fever of 101.6 and leukocytosis of 13 and repeat Chest xray showed focal consolidation opacification in right mid to lower lung zone as well as the left lung base suggestive of aspiration pneumonia. ID (Dr. Vargas) was consulted. Patient was placed on aspiration precautions and Rocephin 1 g IV daily and Flagyl 500 mg IV q8h. Hemoglobin dropped from 10.3 (before fluids) to 7.7 but then stabilized. Fecal occult blood test was positive. Patient reports having chronic anemia and she is taking iron supplementation at home. She is also up-to-date on her colonoscopy. Home medications were continued throughout hospital course. Patient was seen by PT. Upon discharge, patient reported improvement of her cough and weakness and was able to tolerate her food. She had no acute complaints. Patient will continue on home antibiotics for 5 days and home PT will be arranged. Discharge Exam - Head Exam Head Exam: ATRAUMATIC, NORMOCEPHALIC - Eye Exam Eye Exam: EOMI, Normal appearance - ENT Exam ENT Exam: Mucous Membranes Moist - Neck Exam Neck exam: Normal Inspection - Respiratory Exam Respiratory Exam: Rales (improved), NORMAL BREATHING PATTERN. absent: Accessory Muscle Use, Wheezes, Respiratory Distress - Cardiovascular Exam Cardiovascular Exam: RRR, +S1, +S2 - GI/Abdominal Exam GI & Abdominal Exam: Soft, Unremarkable. absent: Distended, Tenderness - Extremities Exam Extremities exam: normal inspection - Neurological Exam Neurological exam: Alert, CN II-XII Intact, Oriented x3 - Psychiatric Exam Psychiatric exam: Normal Affect, Normal Mood - Skin Skin Exam: Dry, Intact, Normal Color, Warm Discharge Plan - Discharge Medications Prescriptions: Amoxicillin [Amoxil 500 mg Cap] 500 mg PO BID 5 Days #10 cap - Follow Up Plan Condition: IMPROVED Disposition: HOME/ ROUTINE Patient education suggested?: Yes Additional Instructions: Please follow-up with your primary care physician, Dr. Stanton, within 3-5 days of discharge. Follow-up with Dr. Magana in 1-2 weeks. Resume all of your home medications. You will also be given a prescription for an antibiotic (Amoxicillin)- take twice daily for 5 days. You will be given a referral for outpatient physical therapy. If symptoms recur or worsen, return to the nearest emergency room. Referrals: Negar Stanton MD [Medical Doctor] - Gareth Magana MD [Staff Provider] -
[2018-07-06 07:48] LABS: ALB/GLOB RATIO 1.2 (1.0-2.1); ALBUMIN 2.9 g/dL (3.5-5.0); ALT/SGPT 18 U/L (9-52); AST/SGOT 19 U/L (14-36); BLOOD UREA NITROGEN 12 mg/dL (7-17); CALCIUM 8.4 mg/dl (8.6-10.4); GFR NON-AFRICAN AMERICAN > 60
[2018-07-06 07:59] VITALS: PULSE 75; O2SAT 99
[2018-07-06 08:52] LABS: ANISOCYTOSIS SLIGHT; BURR CELLS SLIGHT; EOSINOPHIL 5 % (0-4); LYMPHOCYTE 5 % (20-40); MONOCYTE 3 % (0-10); NEUTROPHIL 87 % (50-75); PLATELET ESTIMATE DECREASED (NORMAL); POIKILOCYTOSIS SLIGHT; TOTAL CELLS COUNTED 100
[2018-07-06 08:53] LABS: HYPOCHROMIC SLIGHT; TEARDROP CELLS SLIGHT
[2018-07-06 08:54] LABS: OVALOCYTES SLIGHT; TARGET CELLS SLIGHT
[2018-07-06] MEDS: cefTRIAXone IV 1 gm in Dextros 50 ML IVPB SCH (10:04)
[2018-07-06] MEDS: guaiFENesin 600 mg ER Tab PO SCH (10:05)
[2018-07-06] MEDS: Lactobacillus Acidophilus 500 MU Cap PO SCH (10:05)
[2018-07-06 10:06] VITALS: BP 90/56
--- NOTE | 2018-07-06 10:52 | CP.PCM.PN ---
Subjective - Date & Time of Evaluation Date of Evaluation: 07/06/18 Time of Evaluation: 10:49 - Subjective Subjective: Patient states that she is feeling better after a respiratory treatment. She denies having chest pain, abdominal pain, difficulty swallowing, diarrhea, rectal bleeding. Objective - Vital Signs/Intake and Output Vital Signs (last 24 hours): Temp Pulse Resp BP Pulse Ox 97.6 F 75 20 90/56 L 99 07/06/18 07:20 07/06/18 07:20 07/06/18 07:20 07/06/18 10:06 07/06/18 07:20 Intake and Output: 07/06/18 07/06/18 06:59 18:59 Intake Total 650 Output Total 800 Balance -150 - Medications Medications: Current Medications Acetaminophen (Tylenol 325mg Tab) 650 mg PO Q6 PRN PRN Reason: Fever >100.4; Pain, Mild (1-3) Last Admin: 07/06/18 06:11 Dose: 650 mg Albuterol/Ipratropium (Duoneb 3 Mg/0.5 Mg (3 Ml) Ud) 3 ml INH RQ6 [facility] Last Admin: 07/06/18 07:15 Dose: 3 ml Aspirin (Aspirin Chewable) 81 mg PO DAILY [facility] Last Admin: 07/06/18 10:05 Dose: 81 mg Clopidogrel Bisulfate (Plavix) 75 mg PO DAILY [facility] Last Admin: 07/06/18 10:05 Dose: 75 mg Folic Acid (Folic Acid) 1 mg PO DAILY [facility] Last Admin: 07/06/18 10:05 Dose: 1 mg Guaifenesin (Mucinex La) 600 mg PO BID [facility] Last Admin: 07/06/18 10:05 Dose: 600 mg Ceftriaxone Sodium (Rocephin Iv 1 Gm Duplex) 50 mls @ 100 mls/hr IVPB DAILY [facility]; Protocol Last Admin: 07/06/18 10:04 Dose: 100 mls/hr Metronidazole (Flagyl) 500 mg in 100 mls @ 100 mls/hr IVPB Q8H [facility]; Protocol Last Admin: 07/06/18 02:38 Dose: 100 mls/hr Lactobacillus Acidophilus (Bacid Acidophilus) 1 cap PO BID [facility] Last Admin: 07/06/18 10:05 Dose: 1 cap Levothyroxine Sodium (Synthroid) 25 mcg PO DAILY@0630 [facility] Last Admin: 07/06/18 06:10 Dose: 25 mcg Lisinopril (Zestril) 2.5 mg PO DAILY [facility] Last Admin: 07/06/18 10:05 Dose: Not Given Methotrexate (Methotrexate) 10 mg PO Q7D [facility] Metoprolol Tartrate (Lopressor) 25 mg PO BID [facility] Last Admin: 07/06/18 10:06 Dose: Not Given Ondansetron HCl (Zofran Inj) 4 mg IVP ONCE PRN PRN Reason: Nausea/Vomiting Last Admin: 07/05/18 11:20 Dose: 4 mg Rosuvastatin Calcium (Crestor) 5 mg PO HS [facility] Last Admin: 07/05/18 21:06 Dose: 5 mg - Labs Labs: 07/06/18 06:52 07/06/18 06:52 PT 11.7 SECONDS (9.7-12.2) 07/02/18 14:18 INR 1.1 07/02/18 14:18 APTT 34 SECONDS (21-34) 07/02/18 14:18 - Constitutional Appears: No Acute Distress - Head Exam Head Exam: ATRAUMATIC, NORMOCEPHALIC - Eye Exam Eye Exam: EOMI, PERRL - Neck Exam Neck Exam: absent: Lymphadenopathy, Thyromegaly - Respiratory Exam Respiratory Exam: NORMAL BREATHING PATTERN. absent: Rales, Rhonchi, Wheezes - Cardiovascular Exam Cardiovascular Exam: REGULAR RHYTHM, +S1, +S2. absent: Gallop, Rubs, Murmur - GI/Abdominal Exam GI & Abdominal Exam: Soft, Normal Bowel Sounds. absent: Tenderness, Mass, Organomegaly - Rectal Exam Rectal Exam: Deferred - Extremities Exam Extremities Exam: absent: Calf Tenderness, Pedal Edema Assessment and Plan (1) Esophageal obstruction due to food impaction Assessment & Plan: Patient denies having difficulty swallowing at present. Follow up in the office for further evaluation. Status: Acute (2) Aspiration pneumonia Assessment & Plan: Patient remains afebrile. The CXR is improving. Continue antibiotics for six additional days. Status: Acute
--- NOTE | 2018-07-06 12:26 | RAD ---
Date of service: 07/06/2018 HISTORY: Pneumonia COMPARISON: 07/04/2018. Single-view chest. 07/02/2018 CT thorax FINDINGS: LUNGS: Stable lower lobe infiltrates PLEURA: No significant pleural effusion identified, no pneumothorax apparent. CARDIOVASCULAR: No radiographic findings to suggest acute or significant cardiovascular disease. Atherosclerotic calcifications identified primarily aortic arch. Position/ configuration of pacemaker OSSEOUS STRUCTURES: No significant abnormalities. Severe degenerative changes right shoulder stable VISUALIZED UPPER ABDOMEN: Normal. OTHER FINDINGS: None. IMPRESSION: Stable pulmonary parenchymal findings primarily lower lobe consolidative change.
--- NOTE | 2018-07-06 15:14 | CP.PCM.PN ---
Subjective - Date & Time of Evaluation Date of Evaluation: 07/06/18 Time of Evaluation: 15:00 - Subjective Subjective: dictated Objective - Vital Signs/Intake and Output Vital Signs (last 24 hours): Temp Pulse Resp BP Pulse Ox 97.6 F 75 20 90/56 L 99 07/06/18 07:20 07/06/18 07:20 07/06/18 07:20 07/06/18 10:06 07/06/18 07:20 Intake and Output: 07/06/18 07/06/18 06:59 18:59 Intake Total 650 Output Total 800 Balance -150 - Medications Medications: Current Medications Acetaminophen (Tylenol 325mg Tab) 650 mg PO Q6 PRN PRN Reason: Fever >100.4; Pain, Mild (1-3) Last Admin: 07/06/18 06:11 Dose: 650 mg Albuterol/Ipratropium (Duoneb 3 Mg/0.5 Mg (3 Ml) Ud) 3 ml INH RQ6 [facility] Last Admin: 07/06/18 07:15 Dose: 3 ml Aspirin (Aspirin Chewable) 81 mg PO DAILY [facility] Last Admin: 07/06/18 10:05 Dose: 81 mg Clopidogrel Bisulfate (Plavix) 75 mg PO DAILY [facility] Last Admin: 07/06/18 10:05 Dose: 75 mg Folic Acid (Folic Acid) 1 mg PO DAILY [facility] Last Admin: 07/06/18 10:05 Dose: 1 mg Guaifenesin (Mucinex La) 600 mg PO BID [facility] Last Admin: 07/06/18 10:05 Dose: 600 mg Ceftriaxone Sodium (Rocephin Iv 1 Gm Duplex) 50 mls @ 100 mls/hr IVPB DAILY [facility]; Protocol Last Admin: 07/06/18 10:04 Dose: 100 mls/hr Metronidazole (Flagyl) 500 mg in 100 mls @ 100 mls/hr IVPB Q8H [facility]; Protocol Last Admin: 07/06/18 11:45 Dose: 100 mls/hr Lactobacillus Acidophilus (Bacid Acidophilus) 1 cap PO BID [facility] Last Admin: 07/06/18 10:05 Dose: 1 cap Levothyroxine Sodium (Synthroid) 25 mcg PO DAILY@0630 [facility] Last Admin: 07/06/18 06:10 Dose: 25 mcg Lisinopril (Zestril) 2.5 mg PO DAILY [facility] Last Admin: 07/06/18 10:05 Dose: Not Given Methotrexate (Methotrexate) 10 mg PO Q7D [facility] Metoprolol Tartrate (Lopressor) 25 mg PO BID [facility] Last Admin: 07/06/18 10:06 Dose: Not Given Ondansetron HCl (Zofran Inj) 4 mg IVP ONCE PRN PRN Reason: Nausea/Vomiting Last Admin: 07/05/18 11:20 Dose: 4 mg Rosuvastatin Calcium (Crestor) 5 mg PO HS [facility] Last Admin: 07/05/18 21:06 Dose: 5 mg - Labs Labs: 07/06/18 06:52 07/06/18 06:52 PT 11.7 SECONDS (9.7-12.2) 07/02/18 14:18 INR 1.1 07/02/18 14:18 APTT 34 SECONDS (21-34) 07/02/18 14:18
--- NOTE | 2018-07-07 01:09 | PN ---
DATE: 07/06/2018 SUBJECTIVE: The patient was feeling better. However, when I went, she complained of some chills. We took the temperature, it was fine. Her was at the bedside. He brought the wheelchair to take her home. He says she has been weak and she just recently had a stent placed and is on blood thinners, but she denied any nausea, vomiting, diarrhea, or any trouble swallowing today, and she had no chest pain. I told them if they have a blood pressure machine, to check the blood pressure at home before he gives any blood pressure medicines because they have not been giving her here as she was anemic and low red count. The patient otherwise was stable. PHYSICAL EXAMINATION: VITAL SIGNS: T-max was 97.6, pulse 75, blood pressure 90/56, respirations are 20, saturation 99. HEAD: Atraumatic, normocephalic. NECK: Supple. LUNGS: Clear. Few crackles on left base, otherwise clear. HEART: S1, S2 is regular. Has murmur. ABDOMEN: Soft, nontender. No guarding, no rigidity present. EXTREMITIES: Have no edema. LABORATORY DATA: Labs are noted. Labs show white count was 5.2 today, hemoglobin 7.9, hematocrit 23.4, platelet count is 100. She said next week she would go and see the aircraft engine installer and her said he will monitor the count. ASSESSMENT AND PLAN: She was admitted with aspiration pneumonia and esophageal obstruction with the food, and she underwent an esophagogastroduodenoscopy and is going home. She will be on Augmentin for next 5 days and she is supposed to follow with Dr. Magana and her aircraft engine installer. She is status post stent and has low blood pressure, we have monitored here, it has remained low, so her medications need to be adjusted. Clemente Vargas MD
== END 2018-07-06 16:28 | disposition home or self-care (01) | DRG 393 ==
LOC: C.ER 12:59 → C.9E 16:21 → C.6T 22:26
PROVIDERS: ADMIT Hospitalist; ATTEND Hospitalist
PROC: 0DB98ZX Excision of Duodenum, Via Natural or Artificial Opening Endoscopic, Diagnostic (ICD-10-PCS; 2018-07-02)
PROC: 0DB68ZX Excision of Stomach, Via Natural or Artificial Opening Endoscopic, Diagnostic (ICD-10-PCS; 2018-07-02)
PROC: 0CJS8ZZ Inspection of Larynx, Via Natural or Artificial Opening Endoscopic (ICD-10-PCS; 2018-07-02)
PROC: 0DC28ZZ Extirpation of Matter from Middle Esophagus, Via Natural or Artificial Opening Endoscopic (ICD-10-PCS; principal; 2018-07-02 18:00)
DX: T18.128A Food in esophagus causing other injury, initial encounter (principal); J69.0 Pneumonitis due to inhalation of food and vomit; K22.2 Esophageal obstruction; K21.0 Gastro-esophageal reflux disease with esophagitis; K29.50 Unspecified chronic gastritis without bleeding; K44.9 Diaphragmatic hernia without obstruction or gangrene; I11.9 Hypertensive heart disease without heart failure; I25.10 Atherosclerotic heart disease of native coronary artery without angina pectoris; I51.7 Cardiomegaly; D64.9 Anemia, unspecified; M06.9 Rheumatoid arthritis, unspecified; E03.9 Hypothyroidism, unspecified; M19.042 Primary osteoarthritis, left hand; E78.5 Hyperlipidemia, unspecified; H40.9 Unspecified glaucoma; Z96.643 Presence of artificial hip joint, bilateral; Z87.891 Personal history of nicotine dependence; Z88.1 Allergy status to other antibiotic agents; Z95.5 Presence of coronary angioplasty implant and graft